=== PATIENT | male | born 1960 | race Caucasian/White ===

== ENCOUNTER 2017-03-31 11:27 | Inpatient (IN) | payer SELFPAY ==
[~2017-03-31] VITALS: Ht 180.3 cm; Wt 83.5 kg
[2017-03-31] VITALS (8 sets, daily range): BP systolic 107–134; BP diastolic 57–85
[~2017-03-31 11:27] MED LIST: DULO20CA PO; ESCITALOPRAM OX20 MG PO; FINA5TAB4 PO; LAMO150T PO; LEXAPRO5 MG PO; LITH150C PO; LORA-434 PO; LORA1TAB PO; LORA2TAB89 PO; PANT40TA5 PO; QUET25TA5 PO
[2017-03-31] MEDS ORDERED: 0.9 % SODIUM CHLORIDE 10 ML DISP.SYRIN. IV PRN (12:15)
[2017-03-31] MEDS ORDERED: FAMOTIDINE 20 MG/2 ML VIAL IVP ONE (12:30)
[2017-03-31] MEDS ORDERED: ONDANSETRON PF 4 MG/2 ML VIAL. IV ONE (12:30)
[2017-03-31] MEDS ORDERED: MULTIVIT INFUSN,ADULT 4,VIT K 10 ML, FOLIC ACID 1 MG, THIAMINE 100 MG in IV NORMAL SALI... IV SCH (13:00)
[2017-03-31 13:05] LABS: BASO # 0.1 x10^3/uL (0.0-0.2); BASO % 1 % (0-3); EOS % 2 % (0-3); HEMATOCRIT 42.3 % (39.0-53.0); HEMOGLOBIN 14.1 g/dL (13.0-17.5); LYMPH # 1.8 x10^3/uL (1.0-4.8); LYMPH % 25 % (24-48); MEAN CORPUSCULAR HEMOGLOBIN 32 pg (25-35); MEAN CORPUSCULAR HGB CONC 34 g/dL (31-37); MEAN CORPUSCULAR VOLUME 95 fL (79-100); MONO % 14 % (0-9); NEUT % 58 % (31-73); PLATELET COUNT 247 x10^3/uL (140-400); RED BLOOD COUNT 4.43 x10^6/uL (4.30-5.70); RED CELL DISTRIBUTION WIDTH 14.8 % (11.5-14.5); WHITE BLOOD COUNT 7.4 x10^3/uL (4.0-11.0)
[2017-03-31 13:14] LABS: CALCIUM 8.3 mg/dL (8.5-10.1); CREATININE 1.1 mg/dL (0.7-1.3); GFR 68.8; POTASSIUM 4.1 mmol/L (3.5-5.1)
[2017-03-31 13:20] LABS: ALBUMIN 3.5 g/dL (3.4-5.0); ALBUMIN/GLOBULIN RATIO 0.9 (1.0-1.7); MAGNESIUM 1.8 mg/dL (1.8-2.4); TOTAL BILIRUBIN 0.5 mg/dL (0.2-1.0); TOTAL PROTEIN 7.2 g/dL (6.4-8.2)
[2017-03-31 13:24] LABS: BARBITURATES NEG (NEG); BENZODIAZEPINES NEG (NEG); CANNABINOIDS NEG (NEG); COCAINE NEG (NEG); METHADONE NEG (NEG); OPIATES NEG (NEG); PHENCYCLIDINE NEG (NEG)
[2017-03-31 13:25] LABS: ETHANOL 130 mg/dL (0-10)
[2017-03-31 13:26] LABS: BILIRUBIN,URINE NEGATIVE (NEG); GLUCOSE,URINE NEGATIVE (NEG); NITRITE,URINE NEGATIVE (NEG); PROTEIN,URINE NEGATIVE (NEG-TRACE); UROBILINOGEN,URINE 0.2 mg/dL (0.2 mg/dL)
[2017-03-31 13:29] LABS: CKMB MASS 0.9 ng/mL (0.0-3.6)
[2017-03-31 13:30] LABS: BACTERIA,URINE 0 /HPF (0-FEW); RBC,URINE 0 /HPF (0-2); WBC,URINE OCC /HPF (0-4)
[2017-03-31] MEDS ORDERED: ONDANSETRON PF 4 MG/2 ML VIAL. IV PRN (13:30)
--- NOTE | 2017-03-31 13:31 | PHYS DOC ---
Past Medical History Past Medical History: Alcoholism, Anxiety, Depression, Other Additional Past Medical Histor: PULMONARY EMBOLUS 2014,ETOH & BENZO WITHDRAWAL Past Surgical History: Other Additional Past Surgical Histo: BILAT KNEE ARTHROSCOPY, bilat shoulder arthroscopy,NASAL SURG Alcohol Use: Heavy Drug Use: Benzodiazepine Adult General Chief Complaint Chief Complaint: WITHDRAWL HPI HPI This pleasant is a pleasant 56-year-old male with history of alcohol is in alcohol withdrawal seizures and DTs presents about 12-14 hours after eating drinking his last drink. He's been binging drinking anywhere from 8-10 alcoholic beverages daily for last 2 weeks and was attempting to wean himself off the alcohol. He noted increased muscle tremulousness, diaphoresis, nausea and generalized weakness and flulike symptoms over the last 12 hours. It is gotten progressively worse when I was progressed to diaphoresis and generalized weakness. He denies any chest pain, abdominal pain, UTI symptoms, fever he has had chills. No productive cough no runny nose congestion or other symptoms. Patient says he recalls having a seizure at some point time in the past. Although he is on nothing for seizures. There is a question will history of benzodiazepine withdrawal and abuse in the past as well. he denies any auditory or visual hallucinations at this time. Review of Systems Review of Systems Constitutional: She has had diaphoresis with subjective fevers and chills. Eyes: Denies change in visual acuity, redness, or eye pain [] HENT: Denies nasal congestion or sore throat [] Respiratory: Denies cough or shortness of breath [] Cardiovascular: No additional information not addressed in HPI [] GI: He denies abdominal pain has severe nausea with no vomiting bloody stools or diarrhea. He denies melena or melena hematochezia : Denies dysuria or hematuria [] Musculoskeletal: Denies back pain or joint pain does complain of myalgias in all joints with no rash no joint swelling Integument: Denies rash or skin lesions he is having significant diaphoresis Neurologic: Denies headache, focal weakness or sensory changes [] Endocrine: Denies polyuria or polydipsia [] Current Medications Current Medications Current Medications Medications (Trade) Dose Ordered Sig/Claire Start Time Stop Time Status Last Admin Dose Admin Famotidine (Pepcid) 20 mg 1X ONCE 03/31/17 12:30 03/31/17 12:31 DC 03/31/17 12:39 20 MG Lorazepam (Ativan) 4 mg 1X ONCE 03/31/17 13:30 03/31/17 13:31 Multivitamins 10 ml/Folic Acid 1 mg/Thiamine HCl 100 mg/Sodium Chloride 1,011.2 ml @ 1,000 mls/ hr Q1H 03/31/17 13:00 03/31/17 13:00 DC 03/31/17 12:40 1,000 MLS/HR Multivitamins 10 ml/Thiamine HCl 100 mg/Folic Acid 1 mg/Sodium Chloride 1,011.2 ml @ 100 mls/ hr DAILY 04/01/17 09:00 04/06/17 08:59 Ondansetron HCl (Zofran) 4 mg PRN Q8HRS PRN 03/31/17 13:30 04/01/17 13:29 UNV Sodium Chloride 1,000 ml @ 125 mls/hr Q8H 03/31/17 13:16 04/01/17 13:15 UNV Sodium Chloride (Normal Saline Flush) 10 ml QSHIFT PRN 03/31/17 12:15 Allergies Allergies Allergies Coded Allergies Type Severity Reaction Last Updated Verified Penicillins Allergy Intermediate Rash 10/19/15 Yes Physical Exam Physical Exam Other vital signs recorded on the chart at this time patient noted to be tachycardic and tachypnea without hypoxia or hypotension Constitutional: Well developed, well nourished, obviously is uncomfortable with mild diaphoresis and significant motor agitation. HENT: Normocephalic, atraumatic, bilateral external ears normal, dry mucous murmurings without oral exudates Eyes: PERRLA, EOMI, conjunctiva normal, no discharge. [] Neck: Normal range of motion, no tenderness, supple, no stridor. [] Cardiovascular: He is very tachycardic normal S1-S2 no murmurs or rubs Lungs & Thorax: Bilateral breath sounds clear to auscultation [] Abdomen: Bowel sounds normal, soft, no tenderness, no masses, no pulsatile masses. [] Skin: Warm, dry, no erythema, no rash. [] Back: No tenderness, no CVA tenderness. [] Extremities: No tenderness, no cyanosis, no clubbing, ROM intact, no edema. He does is mild diaphoresis clammy cool skin Neurologic: Alert and oriented X 3, normal motor function, normal sensory function, no focal deficits noted. [] Psychologic: As patient demonstrates motor agitation but his conditions intact patient mild anxious. Current Patient Data Vital Signs Vital Signs Date Time Temp Pulse Resp B/P (MAP) Pulse Ox O2 Delivery O2 Flow Rate FiO2 03/31/17 11:32 97.8 129 24 113/71 (85) 97 Room Air 97.8 Lab Values Laboratory Tests Test 03/31/17 12:30 White Blood Count 7.4 x10^3/uL (4.0-11.0) Red Blood Count 4.43 x10^6/uL (4.30-5.70) Hemoglobin 14.1 g/dL (13.0-17.5) Hematocrit 42.3 % (39.0-53.0) Mean Corpuscular Volume 95 fL (79-100) Mean Corpuscular Hemoglobin 32 pg (25-35) Mean Corpuscular Hemoglobin Concent 34 g/dL (31-37) Red Cell Distribution Width 14.8 % (11.5-14.5) H Platelet Count 247 x10^3/uL (140-400) Neutrophils (%) (Auto) 58 % (31-73) Lymphocytes (%) (Auto) 25 % (24-48) Monocytes (%) (Auto) 14 % (0-9) H Eosinophils (%) (Auto) 2 % (0-3) Basophils (%) (Auto) 1 % (0-3) Neutrophils # (Auto) 4.3 x10^3uL (1.8-7.7) Lymphocytes # (Auto) 1.8 x10^3/uL (1.0-4.8) Monocytes # (Auto) 1.0 x10^3/uL (0.0-1.1) Eosinophils # (Auto) 0.1 x10^3/uL (0.0-0.7) Basophils # (Auto) 0.1 x10^3/uL (0.0-0.2) Sodium Level 134 mmol/L (136-145) L Potassium Level 4.1 mmol/L (3.5-5.1) Chloride Level 95 mmol/L (98-107) L Carbon Dioxide Level 23 mmol/L (21-32) Anion Gap 16 (6-14) H Blood Urea Nitrogen 9 mg/dL (8-26) Creatinine 1.1 mg/dL (0.7-1.3) Estimated GFR (Cockcroft-Gault) 68.8 BUN/Creatinine Ratio 8 (6-20) Glucose Level 106 mg/dL (70-99) H Calcium Level 8.3 mg/dL (8.5-10.1) L Magnesium Level Pending Total Bilirubin Pending Aspartate Amino Transferase (AST) Pending Alanine Aminotransferase (ALT) Pending Alkaline Phosphatase Pending Total Protein Pending Albumin Pending Albumin/Globulin Ratio Pending Lipase Pending Laboratory Tests 03/31/17 12:30 Laboratory Tests 03/31/17 12:30 EKG EKG []G timed 12:30 PM 03/31/2017 demonstrates heart rate of 126 sinus tachycardia with a P of a QRS VT interval is 128 QRS width is 128 mild interventricular conduction delay of unclear etiology QTC is 461. Abnormal EKG read by me Radiology/Procedures Radiology/Procedures [] Course & Med Decision Making Course & Med Decision Making Pertinent Labs and Imaging studies reviewed. (See chart for details) []he presents with what I believe is alcoholic withdrawal syndromes. He has demonstrated some aspects of delirium tremens with pleural reaction, motor agitation, diaphoresis with nausea no vomiting he denies any auditory or visual hallucinations at this time. Upon arrival his ciwa score was less than 15 Time is now 12:20 PM she upon arrival he is given a banana bag antiemetics and 2 mg IV Ativan. Time is now 1:15 PM patient's CIWA or is greater than 15 increased agitation, motor agitation, diaphoresis and nausea with agitation and anxiety. He is clear that he still needs an additional treatment he is been ordered for an additional 4 mg of Ativan placed on the alcohol withdrawal protocol and will be admitted to the ICU. My differential for hallucinations includes but is not limited to retinal pathology, vision loss, migraine headache, seizure disorder, dementia, alcohol, alcohol withdrawal, medication withdrawal, narcolepsy, psychiatric illness, metabolic encephalopathy, hypothyroidism, renal failure, systemic infection, central nervous system ischemia, At this point given patient's alcohol consumption and obvious withdrawal symptoms he will be admitted to the ICU in the care of internal medicine. Manager Inventory note: 1:20 p.m. jocelyn internal medicine Manager Inventory called at of the service Consult called back at 1:20 p.mChavo arango Discussed the case I presented and they agreed with admission. Time of acceptance 1:20 admitted to the ICU secondary to alcohol withdrawal symptoms.I spent approximately 45-50 minutes working and engaged directly in the patient care providing critical care evaluation this includes but not limited to time spent engaged in work directly related to the individual patients care. I spent time at the bedside, reviewing test results, discussing the case with staff, documenting the medical record and time spent with EMS discussing specific treatment issues when the patient presented and during his evaluation. Dragon Disclaimer Dragon Disclaimer This electronic medical record was generated, in whole or in part, using a voice recognition dictation system. Departure Departure Impression: Primary Impression: Alcohol withdrawal Additional Impressions: Benzodiazepine withdrawal Anxiety Disposition: 09 ADMITTED INPATIENT Admitting Physician: Sadie Sutherland Condition: GUARDED Referrals: VICTOR HUGO FARRELL MD (PCP) Problem Qualifiers BRENDAN JORDAN MD Mar 31, 2017 13:31
--- NOTE | 2017-03-31 14:13 | PDOC1 ---
History and Physical Date of Admission Date of Admission DATE: 03/31/17 TIME: 14:08 Identification/Chief Complaint Chief Complaint alcohol withdrawals Problems: Source Source: Caregiver, Chart review, Patient History of Present Illness History of Present Illness 56 y.o male who is struggling to get sober, HX 8-10 beers a day, last drink 9 PM last night, has been to [facility] rehab like [facility] ([place] helped somewhat, Trying to get sober again but having a hard time, Admitted with shakes, sinus tachy 130s, BP ok, NEg drugs or Smoking, neg UDS, etoh 130s, Admitted to ICU NO nausea or vomiting or abd pain, just feeling "crappy" Sees his psychiatrist for depression sxs Sister also has etoh drinking probs Past Medical History Cardiovascular: No pertinent hx Psych: Addictions, Depression Past Surgical History Past Surgical History: No pertinent history Family History Family History: No Significant, Other (etoh drinking in sister) Social History Smoke: No ALCOHOL: none Drugs: None Current Problem List Problem List Problems Medical Problems: (1) Alcohol withdrawal Status: Acute (2) Anxiety Status: Acute (3) Benzodiazepine withdrawal Status: Acute Problems: Current Medications Current Medications Current Medications Sodium Chloride (Normal Saline Flush) 10 ml QSHIFT PRN IV AFTER MEDS AND BLOOD DRAWS; Start 03/31/17 at 12:15 Ondansetron HCl (Zofran) 4 mg 1X ONCE IV Last administered on 03/31/17 12:39 ; Start 03/31/17 at 12:30; Stop 03/31/17 at 12:31; Status DC Famotidine (Pepcid) 20 mg 1X ONCE IVP Last administered on 03/31/17 12:39; Start 03/31/17 at 12:30; Stop 03/31/17 at 12:31; Status DC Lorazepam (Ativan) 2 mg 1X ONCE IV Last administered on 03/31/17 12:38; Start 03/31/17 at 12:30; Stop 03/31/17 at 12:31; Status DC Multivitamins 10 ml/Folic Acid 1 mg/Thiamine HCl 100 mg/Sodium Chloride 1,011.2 ml @ 1,000 mls/ hr Q1H IV Last administered on 03/31/17 12:40; Start at 13:00; Stop 03/31/17 at 13:00; Status DC Multivitamins 10 ml/Thiamine HCl 100 mg/Folic Acid 1 mg/Sodium Chloride 1,011.2 ml @ 100 mls/ hr DAILY IV ; Start 04/01/17 at 09:00; Stop 04/06/17 at 08:59 Lorazepam (Ativan) 2 mg PRN Q15MIN PRN IV COMM; Start 03/31/17 at 13:15 Lorazepam (Ativan) 4 mg PRN Q15MIN PRN IV COMM; Start 03/31/17 at 13:15 Lorazepam (Ativan) 4 mg 1X ONCE IV Last administered on 03/31/17t 13:27; Start 03/31/17 at 13:30; Stop 03/31/17 at 13:31; Status DC Ondansetron HCl (Zofran) 4 mg PRN Q8HRS PRN IV NAUSEA/VOMITING; Start at 13:30; Stop 04/01/17 at 13:29 Sodium Chloride 1,000 ml @ 125 mls/hr Q8H IV ; Start 03/31/17 at 13:16; Stop 04/01/17 at 13:15 Active Scripts Active Ativan (Lorazepam) 1 Mg Tablet 1 Mg PO TID Lorazepam 1 Mg Tablet 1 Tab PO TID Reported Lamotrigine 150 Mg Tablet 150 Mg PO DAILY Oxly Carbonate 150 Mg Capsule 150 Mg PO HS Escitalopram Oxalate 20 Mg Tablet 20 Mg PO DAILY Pantoprazole Sodium 40 Mg Tablet.dr 40 Mg PO DAILY Seroquel (Quetiapine Fumarate) 25 Mg Tablet 25 Mg PO HS Finasteride 5 Mg Tablet 5 Mg PO DAILY Allergies Allergies: Coded Allergies: Penicillins (Verified Allergy, Intermediate, Rash, 10/19/15) ROS General: YES: Fatigue PSYCHOLOGICAL ROS: YES: Concentration difficultie, Depression Eyes: No Blurry vision, No Decreased vision, No Double vision, No Dry eyes, No Excessive tearing, No Eye Pain, No Itchy Eyes, No Loss of vision, No Photophobia , No Scotomata, No Uses contacts, No Uses glasses, No Other HEENT: No: Heacaches, Visual Changes, Hearing change, Nasal congestion, Nasal discharge, Oral lesions, Sinus pain, Sore Throat, Epistaxis, Sneezing, Snoring, Tinnitus, Vertigo, Vocal changes, Other ALLERGY AND IMMUNOLOGY: No: Hives, Insect Bite Sensitivity, Itchy/Watery Eyes, Nasal Congestion, Post Nasal Drip, Seasonal Allergies, Other Hematological and Lymphatic: No: Bleeding Problems, Blood Clots, Blood Transfusions, Brusing, Night Sweats, Pallor, Swollen Lymph Nodes, Other ENDOCRINE: No: Breast Changes, Galactorrhea, Hair Pattern Changes, Hot Flashes , Malaise/lethargy, Mood Swings, Palpitations, Polydipsia/polyuria, Skin Changes , Temperature Intolerance, Unexpected Weight Changes, Other Breast: No New/Changing Breast Lumps, No Nipple changes, No Nipple discharge, No Other Respiratory: No: Cough, Hemoptysis, Orthopnea, Pleuritic Pain, Shortness of breath, SOB with excertion, Sputum Changes, Stridor, Tachypnea, Wheezing, Other Cardiovascular: No Chest Pain, No Palpitations, No Orthopnea, No Paroxysmal Noc. Dyspnea, No Edema, No Lt Headedness, No Other Gastrointestinal: No Nausea, No Vomiting, No Abdominal Pain, No Diarrhea, No Constipation, No Melena, No Hematochezia, No Other Genitourinary: No Dysuria, No Frequency, No Incontinence, No Hematuria, No Retention, No Discharge, No Urgency, No Pain, No Flank Pain, No Other, No , No , No , No , No , No , No Musculoskeletal: No Gait Disturbance, No Joint Pain, No Joint Stiffness, No Joint Swelling, No Muscle Pain, No Muscular Weakness, No Pain In:, No Swelling In:, No Other Neurological: No Behavorial Changes, No Bowel/Bladder ControlChng, No Confusion , No Dizziness, No Gait Disturbance, No Headaches, No Impaired Coord/balance, No Memory Loss, No Numbness/Tingling, No Seizures, No Speech Problems, No Tremors, No Visual Changes, No Weakness, No Other Skin: No Dry Skin, No Eczema, No Hair Changes, No Lumps, No Mole Changes, No Mottling, No Nail Changes, No Pruritus, No Rash, No Skin Lesion Changes, No Other, No Acne Physical Exam General: Alert, Oriented X3, Cooperative, No acute distress, Other (shakes visible) HEENT: PERRLA Lungs: Clear to auscultation, Normal air movement Heart: S1S2, no thrills, no rubs, no gallops Cardiovascular: S1, S2, Other (sinus tachy 130s) Breasts: Normal Male Genitals Exam: normal genitalia, normal prostate Rectal Exam: not examined PELVIC: Nml ext genitalia Extremities: No clubbing, No cyanosis, No edema, Normal pulses, No tenderness/ swelling Skin: No rashes, No breakdown, No significant lesion Neuro: Normal gait, Normal speech, Strength at 5/5 X4 ext, Normal tone, Sensation intact, Cranial nerves 3-12 NL, Reflexes 2+ Psych/Mental Status: Mental status NL, Mood NL Vitals Vitals Vital Signs Date Time Temp Pulse Resp B/P (MAP) Pulse Ox O2 Delivery O2 Flow Rate FiO2 03/31/17 13:30 122 125/75 (92) 95 03/31/17 12:30 Room Air 03/31/17 11:32 97.8 24 97.8 Labs Labs Laboratory Tests Test 03/31/17 12:30 03/31/17 13:10 White Blood Count 7.4 x10^3/uL (4.0-11.0) Red Blood Count 4.43 x10^6/uL (4.30-5.70) Hemoglobin 14.1 g/dL (13.0-17.5) Hematocrit 42.3 % (39.0-53.0) Mean Corpuscular Volume 95 fL (79-100) Mean Corpuscular Hemoglobin 32 pg (25-35) Mean Corpuscular Hemoglobin Concent 34 g/dL (31-37) Red Cell Distribution Width 14.8 % (11.5-14.5) Platelet Count 247 x10^3/uL (140-400) Neutrophils (%) (Auto) 58 % (31-73) Lymphocytes (%) (Auto) 25 % (24-48) Monocytes (%) (Auto) 14 % (0-9) Eosinophils (%) (Auto) 2 % (0-3) Basophils (%) (Auto) 1 % (0-3) Neutrophils # (Auto) 4.3 x10^3uL (1.8-7.7) Lymphocytes # (Auto) 1.8 x10^3/uL (1.0-4.8) Monocytes # (Auto) 1.0 x10^3/uL (0.0-1.1) Eosinophils # (Auto) 0.1 x10^3/uL (0.0-0.7) Basophils # (Auto) 0.1 x10^3/uL (0.0-0.2) Sodium Level 134 mmol/L (136-145) Potassium Level 4.1 mmol/L (3.5-5.1) Chloride Level 95 mmol/L (98-107) Carbon Dioxide Level 23 mmol/L (21-32) Anion Gap 16 (6-14) Blood Urea Nitrogen 9 mg/dL (8-26) Creatinine 1.1 mg/dL (0.7-1.3) Estimated GFR (Cockcroft-Gault) 68.8 BUN/Creatinine Ratio 8 (6-20) Glucose Level 106 mg/dL (70-99) Calcium Level 8.3 mg/dL (8.5-10.1) Magnesium Level 1.8 mg/dL (1.8-2.4) Total Bilirubin 0.5 mg/dL (0.2-1.0) Aspartate Amino Transf (AST/SGOT) 47 U/L (15-37) Alanine Aminotransferase (ALT/SGPT) 60 U/L (16-63) Alkaline Phosphatase 64 U/L (46-116) Creatine Kinase 256 U/L (39-308) Creatine Kinase MB (Mass) 0.9 ng/mL (0.0-3.6) Creatine Kinase MB Relative Index 0.4 % (0-4) Total Protein 7.2 g/dL (6.4-8.2) Albumin 3.5 g/dL (3.4-5.0) Albumin/Globulin Ratio 0.9 (1.0-1.7) Lipase 131 U/L (73-393) Salicylates Level < 2.8 mg/dL (2.8-20.0) Salicylate Last Dose Date Salicylate Last Dose Time Acetaminophen Level < 10 mcg/ml (10-30) Acetaminophen Last Dose Date Acetaminophen Last Dose Time Ethyl Alcohol Level 130 mg/dL (0-10) Urine Collection Type Unknown Urine Color Yellow Urine Clarity Clear Urine pH 7.0 Urine Specific Vian <=1.005 Urine Protein Negative mg/dL (NEG-TRACE) Urine Glucose (UA) Negative mg/dL (NEG) Urine Ketones (Stick) Trace mg/dL (NEG) Urine Blood Negative (NEG) Urine Nitrite Negative (NEG) Urine Bilirubin Negative (NEG) Urine Urobilinogen Dipstick 0.2 mg/dL (0.2 mg/dL) Urine Leukocyte Esterase Negative (NEG) Urine RBC 0 /HPF (0-2) Urine WBC Occ /HPF (0-4) Urine Bacteria 0 /HPF (0-FEW) Urine Opiates Screen Neg (NEG) Urine Methadone Screen Neg (NEG) Urine Barbiturates Neg (NEG) Urine Phencyclidine Screen Neg (NEG) Urine Amphetamine/Methamphetamine Neg (NEG) Urine Benzodiazepines Screen Neg (NEG) Urine Cocaine Screen Neg (NEG) Urine Cannabinoids Screen Neg (NEG) Urine Ethyl Alcohol Pos (NEG) Laboratory Tests Test 03/31/17 12:30 03/31/17 13:10 White Blood Count 7.4 x10^3/uL (4.0-11.0) Red Blood Count 4.43 x10^6/uL (4.30-5.70) Hemoglobin 14.1 g/dL (13.0-17.5) Hematocrit 42.3 % (39.0-53.0) Mean Corpuscular Volume 95 fL (79-100) Mean Corpuscular Hemoglobin 32 pg (25-35) Mean Corpuscular Hemoglobin Concent 34 g/dL (31-37) Red Cell Distribution Width 14.8 % (11.5-14.5) Platelet Count 247 x10^3/uL (140-400) Neutrophils (%) (Auto) 58 % (31-73) Lymphocytes (%) (Auto) 25 % (24-48) Monocytes (%) (Auto) 14 % (0-9) Eosinophils (%) (Auto) 2 % (0-3) Basophils (%) (Auto) 1 % (0-3) Neutrophils # (Auto) 4.3 x10^3uL (1.8-7.7) Lymphocytes # (Auto) 1.8 x10^3/uL (1.0-4.8) Monocytes # (Auto) 1.0 x10^3/uL (0.0-1.1) Eosinophils # (Auto) 0.1 x10^3/uL (0.0-0.7) Basophils # (Auto) 0.1 x10^3/uL (0.0-0.2) Sodium Level 134 mmol/L (136-145) Potassium Level 4.1 mmol/L (3.5-5.1) Chloride Level 95 mmol/L (98-107) Carbon Dioxide Level 23 mmol/L (21-32) Anion Gap 16 (6-14) Blood Urea Nitrogen 9 mg/dL (8-26) Creatinine 1.1 mg/dL (0.7-1.3) Estimated GFR (Cockcroft-Gault) 68.8 BUN/Creatinine Ratio 8 (6-20) Glucose Level 106 mg/dL (70-99) Calcium Level 8.3 mg/dL (8.5-10.1) Magnesium Level 1.8 mg/dL (1.8-2.4) Total Bilirubin 0.5 mg/dL (0.2-1.0) Aspartate Amino Transf (AST/SGOT) 47 U/L (15-37) Alanine Aminotransferase (ALT/SGPT) 60 U/L (16-63) Alkaline Phosphatase 64 U/L (46-116) Creatine Kinase 256 U/L (39-308) Creatine Kinase MB (Mass) 0.9 ng/mL (0.0-3.6) Creatine Kinase MB Relative Index 0.4 % (0-4) Total Protein 7.2 g/dL (6.4-8.2) Albumin 3.5 g/dL (3.4-5.0) Albumin/Globulin Ratio 0.9 (1.0-1.7) Lipase 131 U/L (73-393) Salicylates Level < 2.8 mg/dL (2.8-20.0) Salicylate Last Dose Date Salicylate Last Dose Time Acetaminophen Level < 10 mcg/ml (10-30) Acetaminophen Last Dose Date Acetaminophen Last Dose Time Ethyl Alcohol Level 130 mg/dL (0-10) Urine Collection Type Unknown Urine Color Yellow Urine Clarity Clear Urine pH 7.0 Urine Specific Vian <=1.005 Urine Protein Negative mg/dL (NEG-TRACE) Urine Glucose (UA) Negative mg/dL (NEG) Urine Ketones (Stick) Trace mg/dL (NEG) Urine Blood Negative (NEG) Urine Nitrite Negative (NEG) Urine Bilirubin Negative (NEG) Urine Urobilinogen Dipstick 0.2 mg/dL (0.2 mg/dL) Urine Leukocyte Esterase Negative (NEG) Urine RBC 0 /HPF (0-2) Urine WBC Occ /HPF (0-4) Urine Bacteria 0 /HPF (0-FEW) Urine Opiates Screen Neg (NEG) Urine Methadone Screen Neg (NEG) Urine Barbiturates Neg (NEG) Urine Phencyclidine Screen Neg (NEG) Urine Amphetamine/Methamphetamine Neg (NEG) Urine Benzodiazepines Screen Neg (NEG) Urine Cocaine Screen Neg (NEG) Urine Cannabinoids Screen Neg (NEG) Urine Ethyl Alcohol Pos (NEG) VTE Prophylaxis Ordered VTE Prophylaxis Devices: Yes VTE Pharmacological Prophylaxi: Yes Assessment/Plan Assessment/Plan 1.A lcohol withdrawal sxs 2. Sinus tcahy 3, Depression NOS Plan: Admit CIWA Reg diet PT./oT for gait check Ok to t.o ICU tmr AM Resume home meds BZs prn Seen at JOCELINE SARGENT MD Mar 31, 2017 14:13
[2017-03-31] MEDS ORDERED: ZOLPIDEM 5 MG TABLET. PO PRN (14:15)
[2017-03-31] MEDS ORDERED: chlordiazePOXIDE HCL 25 MG CAPSULE PO PRN (14:15)
[2017-03-31] MEDS ORDERED: ALPRAZolam 0.25 MG TABLET PO PRN (14:15)
--- NOTE | 2017-03-31 14:38 | EKG ---
[facility] [address] [place] [address] Test Date: 2017-03-31 Test Time: 12:38:41 Pat Name: HAYLEE GRIMM Department: Room: Gender: M [employer]: : 1960 Requested By: BRENDAN JORDAN Order Number: [id number] Reading MD: Measurements Intervals [place] Rate: 126 P: 34 MI: 128 QRS: 42 QRSD: 128 T: 24 QT: 318 QTc: 461 Interpretive Statements SINUS TACHYCARDIA NON SPECIFIC INTRAVENTRICULAR BLOCK RI6.01 Unconfirmed report Compared to ECG 01/30/2017 15:52:16 No significant changes
[2017-03-31] MEDS: LORazepam 1 MG TABLET PO SCH ×2 (15:25→19:57)
[2017-03-31] MEDS: IV NORMAL SALINE 1000ML BAG 1,000 ML IV SCH ×2 (15:25→23:58)
[2017-03-31] MEDS ORDERED: KETOROLAC 30 MG/ML INJ. IV ONE (16:30)
[2017-03-31] MEDS: IBUPROFEN 600 MG TABLET. PO PRN (16:44)
[2017-03-31] MEDS ORDERED: LITHIUM CARBONATE 150 MG CAPSULE. PO SCH (21:00)
[2017-03-31] MEDS ORDERED: QUEtiapine 25 MG TABLET. PO SCH (21:00)
[2017-03-31] MEDS ORDERED: LORazepam 1 MG TABLET PO SCH (21:00)
[2017-04-01] VITALS (17 sets, daily range): BP systolic 119–158; BP diastolic 84–96
[2017-04-01] MEDS: IV NORMAL SALINE 1000ML BAG 1,000 ML IV SCH (07:20)
[2017-04-01] MEDS ORDERED: PANTOPRAZOLE 40 MG TABLET.DR. PO SCH (07:30)
[2017-04-01] MEDS: LORazepam 1 MG TABLET PO SCH ×2 (08:35→12:23)
[2017-04-01] MEDS: IBUPROFEN 600 MG TABLET. PO PRN (08:35)
[2017-04-01] MEDS ORDERED: MULTIVIT INFUSN,ADULT 4,VIT K 10 ML, THIAMINE 100 MG, FOLIC ACID 1 MG in IV NORMAL SALI... IV SCH (09:00)
[2017-04-01] MEDS ORDERED: FINASTERIDE 5 MG TABLET. PO SCH (09:00)
[2017-04-01] MEDS ORDERED: MULTIVIT INFUSN,ADULT 4,VIT K 10 ML, FOLIC ACID 1 MG, THIAMINE 100 MG in IV DEXTROSE 5 ... IV SCH (09:00)
[2017-04-01] MEDS ORDERED: lamoTRIgine 100 MG TABLET. PO SCH (09:00)
[2017-04-01] MEDS ORDERED: CITALOPRAM 20 MG TABLET. PO SCH (09:00)
[2017-04-01] MEDS ORDERED: METOPROLOL TARTRATE 5 MG/5 ML VIAL. IVP ONE (12:15)
--- NOTE | 2017-04-01 12:24 | PDOC ---
PROGRESS NOTES Chief Complaint Chief Complaint Alcohol withdrawal Tachycardia Depression History of Present Illness History of Present Illness Pt is a pleasant 56 year old male who presented to the ED with alcohol withdrawal. Pt was seen at bedside in the ICU. Pt is in no acute distress. Pt started drinking heavily 3 months ago. Drinks 8-10 beers a night. Pt is currently in mild withdrawal. Pt is tachycardic. Labs indicate no major elevation of AST or ALT. Pt is receiving a banana bag at this time. Will continue monitoring in the ICU. Possible discharge home. Vitals Vitals Vital Signs Date Time Temp Pulse Resp B/P (MAP) Pulse Ox O2 Delivery O2 Flow Rate FiO2 04/01/17 11:51 127 158/94 04/01/17 11:12 16 94 Room Air 04/01/17 08:20 97.6 97.6 Physical Exam Physical Exam Tachycardia, tricuspid murmur 06/20 General: Alert, Oriented X3, Cooperative, No acute distress, Other (shakes visible) Heart: Normal S1, Normal S2 Lungs: Clear Abdomen: Normal bowel sounds, Soft Extremities: No clubbing, No cyanosis, No edema, Normal pulses, No tenderness/ swelling Skin: No rashes, No breakdown, No significant lesion Labs LABS Laboratory Tests Test 03/31/17 12:30 03/31/17 13:10 03/31/17 15:05 White Blood Count 7.4 x10^3/uL (4.0-11.0) Red Blood Count 4.43 x10^6/uL (4.30-5.70) Hemoglobin 14.1 g/dL (13.0-17.5) Hematocrit 42.3 % (39.0-53.0) Mean Corpuscular Volume 95 fL (79-100) Mean Corpuscular Hemoglobin 32 pg (25-35) Mean Corpuscular Hemoglobin Concent 34 g/dL (31-37) Red Cell Distribution Width 14.8 % (11.5-14.5) Platelet Count 247 x10^3/uL (140-400) Neutrophils (%) (Auto) 58 % (31-73) Lymphocytes (%) (Auto) 25 % (24-48) Monocytes (%) (Auto) 14 % (0-9) Eosinophils (%) (Auto) 2 % (0-3) Basophils (%) (Auto) 1 % (0-3) Neutrophils # (Auto) 4.3 x10^3uL (1.8-7.7) Lymphocytes # (Auto) 1.8 x10^3/uL (1.0-4.8) Monocytes # (Auto) 1.0 x10^3/uL (0.0-1.1) Eosinophils # (Auto) 0.1 x10^3/uL (0.0-0.7) Basophils # (Auto) 0.1 x10^3/uL (0.0-0.2) Sodium Level 134 mmol/L (136-145) Potassium Level 4.1 mmol/L (3.5-5.1) Chloride Level 95 mmol/L (98-107) Carbon Dioxide Level 23 mmol/L (21-32) Anion Gap 16 (6-14) Blood Urea Nitrogen 9 mg/dL (8-26) Creatinine 1.1 mg/dL (0.7-1.3) Estimated GFR (Cockcroft-Gault) 68.8 BUN/Creatinine Ratio 8 (6-20) Glucose Level 106 mg/dL (70-99) Calcium Level 8.3 mg/dL (8.5-10.1) Magnesium Level 1.8 mg/dL (1.8-2.4) Total Bilirubin 0.5 mg/dL (0.2-1.0) Aspartate Amino Transf (AST/SGOT) 47 U/L (15-37) Alanine Aminotransferase (ALT/SGPT) 60 U/L (16-63) Alkaline Phosphatase 64 U/L (46-116) Creatine Kinase 256 U/L (39-308) Creatine Kinase MB (Mass) 0.9 ng/mL (0.0-3.6) Creatine Kinase MB Relative Index 0.4 % (0-4) Total Protein 7.2 g/dL (6.4-8.2) Albumin 3.5 g/dL (3.4-5.0) Albumin/Globulin Ratio 0.9 (1.0-1.7) Lipase 131 U/L (73-393) Salicylates Level < 2.8 mg/dL (2.8-20.0) Salicylate Last Dose Date Salicylate Last Dose Time Acetaminophen Level < 10 mcg/ml (10-30) Acetaminophen Last Dose Date Acetaminophen Last Dose Time Ethyl Alcohol Level 130 mg/dL (0-10) Urine Collection Type Unknown Urine Color Yellow Urine Clarity Clear Urine pH 7.0 Urine Specific [place] <=1.005 Urine Protein Negative mg/dL (NEG-TRACE) Urine Glucose (UA) Negative mg/dL (NEG) Urine Ketones (Stick) Trace mg/dL (NEG) Urine Blood Negative (NEG) Urine Nitrite Negative (NEG) Urine Bilirubin Negative (NEG) Urine Urobilinogen Dipstick 0.2 mg/dL (0.2 mg/dL) Urine Leukocyte Esterase Negative (NEG) Urine RBC 0 /HPF (0-2) Urine WBC Occ /HPF (0-4) Urine Bacteria 0 /HPF (0-FEW) Urine Opiates Screen Neg (NEG) Urine Methadone Screen Neg (NEG) Urine Barbiturates Neg (NEG) Urine Phencyclidine Screen Neg (NEG) Urine Amphetamine/Methamphetamine Neg (NEG) Urine Benzodiazepines Screen Neg (NEG) Urine Cocaine Screen Neg (NEG) Urine Cannabinoids Screen Neg (NEG) Urine Ethyl Alcohol Pos (NEG) Nasal Screen MRSA (PCR) Negative (Negative) Review of Systems Review of Systems Pt seen at bedside resting comfortably. Pt denies CP and SOB. Pt complains of increased heart rate and depression. Assessment and Plan Assessmemt and Plan Problems Medical Problems: (1) Alcohol withdrawal Status: Acute (2) Anxiety Status: Acute (3) Benzodiazepine withdrawal Status: Acute Assesment: Alcohol withdrawal Tachycardia Depression Plan: Continue monitoring in ICU Alcohol withdrawal protocol- benzos and banana bag Gave metoprolol and ativan Recheck labs Continue home meds Continue PT/OT Possible discharge home Problems: Comment Review of Relevant I have reviewed the following items maria r (where applicable) has been applied. Labs Laboratory Tests Test 03/31/17 12:30 03/31/17 13:10 03/31/17 15:05 White Blood Count 7.4 x10^3/uL (4.0-11.0) Red Blood Count 4.43 x10^6/uL (4.30-5.70) Hemoglobin 14.1 g/dL (13.0-17.5) Hematocrit 42.3 % (39.0-53.0) Mean Corpuscular Volume 95 fL (79-100) Mean Corpuscular Hemoglobin 32 pg (25-35) Mean Corpuscular Hemoglobin Concent 34 g/dL (31-37) Red Cell Distribution Width 14.8 % (11.5-14.5) Platelet Count 247 x10^3/uL (140-400) Neutrophils (%) (Auto) 58 % (31-73) Lymphocytes (%) (Auto) 25 % (24-48) Monocytes (%) (Auto) 14 % (0-9) Eosinophils (%) (Auto) 2 % (0-3) Basophils (%) (Auto) 1 % (0-3) Neutrophils # (Auto) 4.3 x10^3uL (1.8-7.7) Lymphocytes # (Auto) 1.8 x10^3/uL (1.0-4.8) Monocytes # (Auto) 1.0 x10^3/uL (0.0-1.1) Eosinophils # (Auto) 0.1 x10^3/uL (0.0-0.7) Basophils # (Auto) 0.1 x10^3/uL (0.0-0.2) Sodium Level 134 mmol/L (136-145) Potassium Level 4.1 mmol/L (3.5-5.1) Chloride Level 95 mmol/L (98-107) Carbon Dioxide Level 23 mmol/L (21-32) Anion Gap 16 (6-14) Blood Urea Nitrogen 9 mg/dL (8-26) Creatinine 1.1 mg/dL (0.7-1.3) Estimated GFR (Cockcroft-Gault) 68.8 BUN/Creatinine Ratio 8 (6-20) Glucose Level 106 mg/dL (70-99) Calcium Level 8.3 mg/dL (8.5-10.1) Magnesium Level 1.8 mg/dL (1.8-2.4) Total Bilirubin 0.5 mg/dL (0.2-1.0) Aspartate Amino Transf (AST/SGOT) 47 U/L (15-37) Alanine Aminotransferase (ALT/SGPT) 60 U/L (16-63) Alkaline Phosphatase 64 U/L (46-116) Creatine Kinase 256 U/L (39-308) Creatine Kinase MB (Mass) 0.9 ng/mL (0.0-3.6) Creatine Kinase MB Relative Index 0.4 % (0-4) Total Protein 7.2 g/dL (6.4-8.2) Albumin 3.5 g/dL (3.4-5.0) Albumin/Globulin Ratio 0.9 (1.0-1.7) Lipase 131 U/L (73-393) Salicylates Level < 2.8 mg/dL (2.8-20.0) Salicylate Last Dose Date Salicylate Last Dose Time Acetaminophen Level < 10 mcg/ml (10-30) Acetaminophen Last Dose Date Acetaminophen Last Dose Time Ethyl Alcohol Level 130 mg/dL (0-10) Urine Collection Type Unknown Urine Color Yellow Urine Clarity Clear Urine pH 7.0 Urine Specific [place] <=1.005 Urine Protein Negative mg/dL (NEG-TRACE) Urine Glucose (UA) Negative mg/dL (NEG) Urine Ketones (Stick) Trace mg/dL (NEG) Urine Blood Negative (NEG) Urine Nitrite Negative (NEG) Urine Bilirubin Negative (NEG) Urine Urobilinogen Dipstick 0.2 mg/dL (0.2 mg/dL) Urine Leukocyte Esterase Negative (NEG) Urine RBC 0 /HPF (0-2) Urine WBC Occ /HPF (0-4) Urine Bacteria 0 /HPF (0-FEW) Urine Opiates Screen Neg (NEG) Urine Methadone Screen Neg (NEG) Urine Barbiturates Neg (NEG) Urine Phencyclidine Screen Neg (NEG) Urine Amphetamine/Methamphetamine Neg (NEG) Urine Benzodiazepines Screen Neg (NEG) Urine Cocaine Screen Neg (NEG) Urine Cannabinoids Screen Neg (NEG) Urine Ethyl Alcohol Pos (NEG) Nasal Screen MRSA (PCR) Negative (Negative) Laboratory Tests Test 03/31/17 12:30 03/31/17 13:10 03/31/17 15:05 White Blood Count 7.4 x10^3/uL (4.0-11.0) Red Blood Count 4.43 x10^6/uL (4.30-5.70) Hemoglobin 14.1 g/dL (13.0-17.5) Hematocrit 42.3 % (39.0-53.0) Mean Corpuscular Volume 95 fL (79-100) Mean Corpuscular Hemoglobin 32 pg (25-35) Mean Corpuscular Hemoglobin Concent 34 g/dL (31-37) Red Cell Distribution Width 14.8 % (11.5-14.5) Platelet Count 247 x10^3/uL (140-400) Neutrophils (%) (Auto) 58 % (31-73) Lymphocytes (%) (Auto) 25 % (24-48) Monocytes (%) (Auto) 14 % (0-9) Eosinophils (%) (Auto) 2 % (0-3) Basophils (%) (Auto) 1 % (0-3) Neutrophils # (Auto) 4.3 x10^3uL (1.8-7.7) Lymphocytes # (Auto) 1.8 x10^3/uL (1.0-4.8) Monocytes # (Auto) 1.0 x10^3/uL (0.0-1.1) Eosinophils # (Auto) 0.1 x10^3/uL (0.0-0.7) Basophils # (Auto) 0.1 x10^3/uL (0.0-0.2) Sodium Level 134 mmol/L (136-145) Potassium Level 4.1 mmol/L (3.5-5.1) Chloride Level 95 mmol/L (98-107) Carbon Dioxide Level 23 mmol/L (21-32) Anion Gap 16 (6-14) Blood Urea Nitrogen 9 mg/dL (8-26) Creatinine 1.1 mg/dL (0.7-1.3) Estimated GFR (Cockcroft-Gault) 68.8 BUN/Creatinine Ratio 8 (6-20) Glucose Level 106 mg/dL (70-99) Calcium Level 8.3 mg/dL (8.5-10.1) Magnesium Level 1.8 mg/dL (1.8-2.4) Total Bilirubin 0.5 mg/dL (0.2-1.0) Aspartate Amino Transf (AST/SGOT) 47 U/L (15-37) Alanine Aminotransferase (ALT/SGPT) 60 U/L (16-63) Alkaline Phosphatase 64 U/L (46-116) Creatine Kinase 256 U/L (39-308) Creatine Kinase MB (Mass) 0.9 ng/mL (0.0-3.6) Creatine Kinase MB Relative Index 0.4 % (0-4) Total Protein 7.2 g/dL (6.4-8.2) Albumin 3.5 g/dL (3.4-5.0) Albumin/Globulin Ratio 0.9 (1.0-1.7) Lipase 131 U/L (73-393) Salicylates Level < 2.8 mg/dL (2.8-20.0) Salicylate Last Dose Date Salicylate Last Dose Time Acetaminophen Level < 10 mcg/ml (10-30) Acetaminophen Last Dose Date Acetaminophen Last Dose Time Ethyl Alcohol Level 130 mg/dL (0-10) Urine Collection Type Unknown Urine Color Yellow Urine Clarity Clear Urine pH 7.0 Urine Specific [place] <=1.005 Urine Protein Negative mg/dL (NEG-TRACE) Urine Glucose (UA) Negative mg/dL (NEG) Urine Ketones (Stick) Trace mg/dL (NEG) Urine Blood Negative (NEG) Urine Nitrite Negative (NEG) Urine Bilirubin Negative (NEG) Urine Urobilinogen Dipstick 0.2 mg/dL (0.2 mg/dL) Urine Leukocyte Esterase Negative (NEG) Urine RBC 0 /HPF (0-2) Urine WBC Occ /HPF (0-4) Urine Bacteria 0 /HPF (0-FEW) Urine Opiates Screen Neg (NEG) Urine Methadone Screen Neg (NEG) Urine Barbiturates Neg (NEG) Urine Phencyclidine Screen Neg (NEG) Urine Amphetamine/Methamphetamine Neg (NEG) Urine Benzodiazepines Screen Neg (NEG) Urine Cocaine Screen Neg (NEG) Urine Cannabinoids Screen Neg (NEG) Urine Ethyl Alcohol Pos (NEG) Nasal Screen MRSA (PCR) Negative (Negative) Medications Current Medications Sodium Chloride (Normal Saline Flush) 10 ml QSHIFT PRN IV AFTER MEDS AND BLOOD DRAWS; Start 03/31/17 at 12:15 Ondansetron HCl (Zofran) 4 mg 1X ONCE IV Last administered on 03/31/17 12:39 ; Start 03/31/17 at 12:30; Stop 03/31/17 at 12:31; Status DC Famotidine (Pepcid) 20 mg 1X ONCE IVP Last administered on 03/31/17 12:39; Start 03/31/17 at 12:30; Stop 03/31/17 at 12:31; Status DC Lorazepam (Ativan) 2 mg 1X ONCE IV Last administered on 03/31/17 12:38; Start 03/31/17 at 12:30; Stop 03/31/17 at 12:31; Status DC Multivitamins 10 ml/Folic Acid 1 mg/Thiamine HCl 100 mg/Sodium Chloride 1,011.2 ml @ 1,000 mls/ hr Q1H IV Last administered on 03/31/17 12:40; Start at 13:00; Stop 03/31/17 at 13:00; Status DC Multivitamins 10 ml/Thiamine HCl 100 mg/Folic Acid 1 mg/Sodium Chloride 1,011.2 ml @ 100 mls/ hr DAILY IV Last administered on 04/01/17 09:48; Start at 09:00; Stop 04/06/17 at 08:59 Lorazepam (Ativan) 2 mg PRN Q15MIN PRN IV COMM Last administered on 04/01/17 09:59; Start 03/31/17 at 13:15 Lorazepam (Ativan) 4 mg PRN Q15MIN PRN IV COMM Last administered on 04/01/17 02:25; Start 03/31/17 at 13:15 Lorazepam (Ativan) 4 mg 1X ONCE IV Last administered on 03/31/17 13:27; Start 03/31/17 at 13:30; Stop 03/31/17 at 13:31; Status DC Ondansetron HCl (Zofran) 4 mg PRN Q8HRS PRN IV NAUSEA/VOMITING Last administered on 03/31/17 15:24; Start 03/31/17 at 13:30; Stop 04/01/17 at 13 :29 Sodium Chloride 1,000 ml @ 125 mls/hr Q8H IV Last administered on 04/01/17 07:20; Start 03/31/17 at 13:16; Stop 04/01/17 at 13:15 Multivitamins 10 ml/Folic Acid 1 mg/Thiamine HCl 100 mg/Dextrose/ Sodium Chloride 1,011.1 ml @ 100 mls/ hr DAILY IV ; Start 04/01/17 at 09:00; Status UNV Chlordiazepoxide (Librium) 25 mg PRN Q6HRS PRN PO ANXIETY / AGITATION; Start 03/31/17 at 14:15 Alprazolam (Xanax) 0.25 mg PRN Q8HRS PRN PO ANXIETY / AGITATION; Start at 14:15 Zolpidem Tartrate (Ambien) 5 mg PRN QHS PRN PO INSOMNIA; Start 03/31/17 at 14: 15 Finasteride (Proscar) 5 mg DAILY PO Last administered on 04/01/17 08:34; Start 04/01/17 at 09:00 [place] Carbonate ([place] Carbonate) 150 mg HS PO Last administered on 20:06; Start 03/31/17 at 21:00 Lorazepam (Ativan) 1 mg TID PO Last administered on 04/01/17 08:35; Start at 14:30 Lorazepam (Ativan) 1 mg TID PO ; Start 03/31/17 at 21:00; Status UNV Pantoprazole Sodium (Protonix) 40 mg DAILYAC PO Last administered on 08:34; Start 04/01/17 at 07:30 Quetiapine Fumarate (SEROquel) 25 mg HS PO Last administered on 03/31/17 19: 57; Start 03/31/17 at 21:00 Citalopram Hydrobromide (CeleXA) 40 mg DAILY PO Last administered on 08:35; Start 04/01/17 at 09:00 Lamotrigine (LaMICtal) 150 mg DAILY PO Last administered on 04/01/17 08:36; Start 04/01/17 at 09:00 Ibuprofen (Motrin) 600 mg PRN Q6HRS PRN PO INFLAMMATION Last administered on 08:35; Start 03/31/17 at 16:15 Ketorolac Tromethamine (Toradol) 30 mg 1X ONCE IV Last administered on 16:46; Start 03/31/17 at 16:30; Stop 03/31/17 at 16:31; Status DC Metoprolol Tartrate (Lopressor) 5 mg 1X ONCE IVP Last administered on 11:51; Start 04/01/17 at 12:15; Stop 04/01/17 at 12:16 Active Scripts Active Ativan (Lorazepam) 1 Mg Tablet 1 Mg PO TID Lorazepam 1 Mg Tablet 1 Tab PO TID Reported Lamotrigine 150 Mg Tablet 150 Mg PO DAILY [place] Carbonate 150 Mg Capsule 150 Mg PO HS Escitalopram Oxalate 20 Mg Tablet 20 Mg PO DAILY Pantoprazole Sodium 40 Mg Tablet.dr 40 Mg PO DAILY Seroquel (Quetiapine Fumarate) 25 Mg Tablet 25 Mg PO HS Finasteride 5 Mg Tablet 5 Mg PO DAILY Vitals/I & O Vital Sign - Last 24 Hours 10/17/17 10/17/17 10/17/17 10/17/17 12:30 13:30 15:00 16:00 Temp 98.8 98.8 Pulse 84 122 136 Resp 29 B/P (MAP) 113/71 (85) 125/75 (92) 126/85 (99) Pulse Ox 95 95 92 O2 Delivery Room Air Room Air Room Air 03/31/17 03/31/17 03/31/17 03/31/17 16:00 17:00 18:00 20:00 Temp 98.8 98.8 Pulse 132 114 125 116 Resp 29 12 22 22 B/P (MAP) 120/66 (84) 107/62 (77) 108/57 (74) 112/69 (83) Pulse Ox 92 93 93 93 O2 Delivery Room Air Room Air Room Air Room Air 03/31/17 03/31/17 03/31/17 03/31/17 20:00 21:00 22:00 23:00 Pulse 110 106 96 Resp 19 22 18 B/P (MAP) 124/72 (89) 119/70 (86) 134/76 (95) Pulse Ox 94 95 95 O2 Delivery Room Air Room Air Room Air Room Air 03/31/17 04/01/17 04/01/17 04/01/17 23:59 00:01 01:00 02:00 Temp 98.6 98.6 Pulse 90 90 85 Resp 16 16 12 B/P (MAP) 119/90 (100) 125/91 (102) 123/85 (98) Pulse Ox 97 96 96 O2 Delivery Room Air Room Air Room Air Room Air 04/01/17 04/01/17 04/01/17 04/01/17 03:00 03:55 04:00 05:00 Temp 98.8 98.8 Pulse 88 81 91 Resp 16 14 12 B/P (MAP) 121/84 (96) 126/93 (104) 119/87 (98) Pulse Ox 93 95 95 O2 Delivery Room Air Room Air Room Air Room Air 04/01/17 04/01/17 04/01/17 04/01/17 06:00 07:20 07:56 08:20 Temp 97.6 97.6 Pulse 86 86 94 Resp 13 14 12 B/P (MAP) 121/90 (100) 121/90 (100) 149/96 (113) Pulse Ox 94 O2 Delivery Room Air Room Air Room Air Room Air 04/01/17 04/01/17 04/01/17 04/01/17 09:00 10:12 11:12 11:51 Pulse 108 104 123 127 Resp 17 16 B/P (MAP) 155/92 (113) 153/89 (110) 158/94 (115) 158/94 Pulse Ox 98 95 94 O2 Delivery Room Air Room Air Room Air Intake and Output 04/01/17 04/01/17 04/02/17 15:00 23:00 07:00 Intake Total 360 ml Output Total 500 ml Balance -140 ml LITO MELCHOR III DO Apr 01, 2017 12:24
[2017-04-01] MEDS ORDERED: METO25TA4 PO (13:54)
[2017-04-01] MEDS ORDERED: LORA-434 PO (13:57)
[2017-04-01] MEDS ORDERED: METOPROLOL TART IMMED RELEASE 25 MG TABLET. PO ONE (15:00)
--- NOTE | 2017-04-02 12:00 | DS ---
DATE OF DISCHARGE: 04/01/2017 DATE OF ADMISSION: 03/31/2017 DATE OF DISCHARGE: 04/01/2017 ADMISSION DIAGNOSIS: Alcohol withdrawal. DISCHARGE DIAGNOSIS: Resolving alcohol withdrawal. 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 We gave him banana bags and benzos. This morning, he is doing better and wants to go home. DISPOSITION: Home. ACTIVITY: As tolerated. DIET: Low sodium. MEDICATIONS: Please see the MRAD. TOTAL TIME ON DISCHARGE: 31 minutes. SERINAL Barrington MELCHOR DO DR: GWEN/edward JOB#: [id number] / [id number]
== END 2017-04-01 16:28 | disposition home or self-care (01) | DRG 897 ==
LOC: ER 11:27 → 1 WEST ICU 13:20
PROVIDERS: ADMIT Internal Medicine; ATTEND Internal Medicine
DX: F10.239 Alcohol dependence with withdrawal, unspecified (principal); R56.9 Unspecified convulsions; F13.239 Sedative, hypnotic or anxiolytic dependence with withdrawal, unspecified; F32.9 Major depressive disorder, single episode, unspecified; F41.9 Anxiety disorder, unspecified; Z86.711 Personal history of pulmonary embolism
CPT/HCPCS: 36415; 80053; 80307; 80329; 81001; 82553; 83690; 83735; 85025; 87641; 93005; 96365; 96366; 96375; 96376; G0480; J1885; J2060; J2405; J3490; J7030; S0028; 99285-25; G0479

== ENCOUNTER 2017-05-18 17:26 | Inpatient (IN) | payer BC, OTHER ==
[~2017-05-18] VITALS: Ht 180.3 cm; Wt 89.6 kg
[~2017-05-18 17:26] MED LIST changes: -LAMO150T PO; +LAMO150T2 PO; +METO25TA4 PO
[2017-05-18] MEDS ORDERED: MULTIVIT INFUSN,ADULT 4,VIT K 10 ML, THIAMINE 100 MG, FOLIC ACID 1 MG in IV NORMAL SALI... IV SCH (18:15)
[2017-05-18 18:25] LABS: BILIRUBIN,URINE NEGATIVE (NEG); GLUCOSE,URINE NEGATIVE (NEG); NITRITE,URINE NEGATIVE (NEG); PROTEIN,URINE NEGATIVE (NEG-TRACE); UROBILINOGEN,URINE 0.2 mg/dL (0.2 mg/dL)
[2017-05-18 18:32] LABS: BACTERIA,URINE 0 /HPF (0-FEW); BARBITURATES NEG (NEG); BENZODIAZEPINES NEG (NEG); CANNABINOIDS NEG (NEG); COCAINE NEG (NEG); METHADONE NEG (NEG); OPIATES NEG (NEG); PHENCYCLIDINE NEG (NEG); RBC,URINE 0 /HPF (0-2); WBC,URINE 0 /HPF (0-4)
[2017-05-18 18:42] LABS: BASO # 0.1 x10^3/uL (0.0-0.2); BASO % 1 % (0-3); EOS % 5 % (0-3); HEMATOCRIT 43.1 % (39.0-53.0); HEMOGLOBIN 14.4 g/dL (13.0-17.5); LYMPH # 1.8 x10^3/uL (1.0-4.8); LYMPH % 20 % (24-48); MEAN CORPUSCULAR HEMOGLOBIN 32 pg (25-35); MEAN CORPUSCULAR HGB CONC 34 g/dL (31-37); MEAN CORPUSCULAR VOLUME 95 fL (79-100); MONO % 5 % (0-9); NEUT % 70 % (31-73); PLATELET COUNT 241 x10^3/uL (140-400); RED BLOOD COUNT 4.52 x10^6/uL (4.30-5.70); RED CELL DISTRIBUTION WIDTH 14.6 % (11.5-14.5)
[2017-05-18 19:21] LABS: CALCIUM 8.4 mg/dL (8.5-10.1); CREATININE 0.9 mg/dL (0.7-1.3); GFR 86.7; POTASSIUM 4.4 mmol/L (3.5-5.1)
[2017-05-18 19:26] LABS: MAGNESIUM 2.2 mg/dL (1.8-2.4); TOTAL BILIRUBIN 0.4 mg/dL (0.2-1.0); TOTAL PROTEIN 7.9 g/dL (6.4-8.2)
[2017-05-18] MEDS: IV NORMAL SALINE 1000ML BAG 1,000 ML IV SCH (21:00)
[2017-05-18] MEDS ORDERED: cloNIDine HCL 0.1 MG TABLET PO PRN (21:45)
[2017-05-18] MEDS ORDERED: diphenhydrAMINE 50 MG/ML VIAL IVP PRN (21:45)
[2017-05-18] MEDS ORDERED: HALOPERIDOL LACTATE 5 MG/ML VIAL. IVP PRN (21:45)
[2017-05-18 22:00] VITALS: BP 132/67
[2017-05-18 22:15] VITALS: BP 107/60
[2017-05-18 22:30] VITALS: BP 118/67
--- NOTE | 2017-05-18 22:43 | PDOC1 ---
History and Physical Date of Admission Date of Admission DATE: 05/18/17 TIME: 22:35 Identification/Chief Complaint Chief Complaint "I am in EtOH withdrawl" Problems: Source Source: Chart review, Patient History of Present Illness History of Present Illness Mr. Jamison presented to the ER complaining of EtOH withdrawl . He was tremulous and irritated, HR up. He has prior hx of EtOH abuse, and has been admitted here a few times before for the same. He is educated in the meds, and even asked the FORGE TENDER what the benzo protocol is at this hospital. It seems he may be visiting other hospitals and having mult withdrawl events. He brought a large gym bag with clothes and personal items. 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 Family History: No Significant, Other Social History Smoke: No ALCOHOL: heavy Drugs: None Current Problem List Problem List Problems Medical Problems: (1) Alcohol withdrawal Status: Acute Problems: Current Medications Current Medications Current Medications Multivitamins 10 ml/Thiamine HCl 100 mg/Folic Acid 1 mg/Sodium Chloride 1,011.2 ml @ 1,000 mls/ hr Q1H IV Last administered on 05/18/17 18:37; Start at 18:15; Stop 05/18/17 at 18:37; Status DC Diazepam (Valium) 5 mg PRN Q5MIN PRN IV COMM Last administered on 05/18/17 21: 03; Start 05/18/17 at 18:00 Diazepam (Valium) 10 mg PRN Q5MIN PRN IV COMM; Start 05/18/17 at 18:00 Ondansetron HCl (Zofran) 4 mg PRN Q8HRS PRN IV NAUSEA/VOMITING; Start 05/18/17 at 20:15; Stop 05/19/17 at 20:14 Sodium Chloride 1,000 ml @ 125 mls/hr Q8H IV Last administered on 05/18/17 21 :00; Start 05/18/17 at 20:15; Stop 05/19/17 at 20:14 Acetaminophen (Tylenol) 650 mg PRN Q4HRS PRN PO FEVER; Start 05/18/17 at 20:15 ; Stop 05/19/17 at 20:14 Lorazepam (Ativan) 4 mg PRN Q1HR PRN PO For CIWA 8-14; Start 05/18/17 at 21:45 Lorazepam (Ativan) 8 mg PRN Q1HR PRN PO For CIWA 15 or greater; Start 05/18/17 at 21:45 Haloperidol Lactate (Haldol) 5 mg PRN Q4HRS PRN IVP Hallucinatns,Confusn, Delirium; Start 05/18/17 at 21:45 Diphenhydramine HCl (Benadryl) 25 mg PRN Q15MIN PRN IVP EPS symptoms 2'Haldol admin; Start 05/18/17 at 21:45 Clonidine HCl (Catapres) 0.1 mg PRN Q1HR PRN PO SBP > 180 or DBP > 100, MRX3; Start 05/18/17 at 21:45 Lorazepam (Ativan) 4 mg PRN Q1HR PRN IV For CIWA 15 or greater Last administered on 05/18/17t 21:51; Start 05/18/17 at 21:45 Active Scripts Active Reported Ativan (Lorazepam) 1 Mg Tablet 1 Mg PO Q12HR PRN Metoprolol Tartrate 25 Mg Tablet 1 Tab PO BID Lamotrigine 150 Mg Tablet 150 Mg PO DAILY [place] Carbonate 150 Mg Capsule 150 Mg PO HS Escitalopram Oxalate 20 Mg Tablet 20 Mg PO DAILY Pantoprazole Sodium 40 Mg Tablet.dr 40 Mg PO DAILY Seroquel (Quetiapine Fumarate) 25 Mg Tablet 25 Mg PO HS Finasteride 5 Mg Tablet 5 Mg PO DAILY Allergies Allergies: Coded Allergies: Penicillins (Verified Allergy, Intermediate, Rash, 10/19/15) ROS General: No: Chills, Night Sweats, Fatigue, Malaise, Appetite, Other PSYCHOLOGICAL ROS: YES: Anxiety, Depression, Irritablity, Sleep disturbances, No: Behavioral Disorder, Concentration difficultie, Decreased libido, Disorientation, Hallucinations, Hostility, Memory difficulties, Mood Swings, Obsessive thoughts, Other Eyes: No Blurry vision, No Decreased vision, No Double vision, No Dry eyes, No Excessive tearing, No Eye Pain, No Itchy Eyes, No Loss of vision, No Photophobia , No Scotomata, No Uses contacts, No Uses glasses, No Other HEENT: No: Heacaches, Visual Changes, Hearing change, Nasal congestion, Nasal discharge, Oral lesions, Sinus pain, Sore Throat, Epistaxis, Sneezing, Snoring, Tinnitus, Vertigo, Vocal changes, Other Respiratory: No: Cough, Hemoptysis, Orthopnea, Pleuritic Pain, Shortness of breath, SOB with excertion, Sputum Changes, Stridor, Tachypnea, Wheezing, Other Cardiovascular: yes Palpitations, yes Other, No Chest Pain, No Orthopnea, No Paroxysmal Noc. Dyspnea, No Edema, No Lt Headedness Gastrointestinal: Yes Nausea, Yes Abdominal Pain, No Vomiting, No Diarrhea, No Constipation, No Melena, No Hematochezia, No Other Genitourinary: No Dysuria, No Frequency, No Incontinence, No Hematuria, No Retention, No Discharge, No Urgency, No Pain, No Flank Pain, No Other, No , No , No , No , No , No , No Musculoskeletal: No Gait Disturbance, No Joint Pain, No Joint Stiffness, No Joint Swelling, No Muscle Pain, No Muscular Weakness, No Pain In:, No Swelling In:, No Other Neurological: No Behavorial Changes, No Bowel/Bladder ControlChng, No Confusion , No Dizziness, No Gait Disturbance, No Headaches, No Impaired Coord/balance, No Memory Loss, No Numbness/Tingling, No Seizures, No Speech Problems, No Tremors, No Visual Changes, No Weakness, No Other Skin: Yes Dry Skin, No Eczema, No Hair Changes, No Lumps, No Mole Changes, No Mottling, No Nail Changes, No Pruritus, No Rash, No Skin Lesion Changes, No Other, No Acne Physical Exam General: Alert, Oriented X3, mild distress, moderate distress HEENT: Atraumatic, PERRLA, EOMI Heart: no murmurs, other (tachy) Abdomen: Normal bowel sounds, Soft Rectal Exam: not examined Extremities: No clubbing, No edema, Normal pulses Skin: No significant lesion Neuro: Normal speech, Sensation intact, Other (pressured, ) Psych/Mental Status: Other (agitated, does not remember me, I have seen him twice before) Vitals Vitals Vital Signs Date Time Temp Pulse Resp B/P (MAP) Pulse Ox O2 Delivery O2 Flow Rate FiO2 05/18/17 21:48 104 18 135/76 (95) 98 Room Air 05/18/17 17:35 98.0 98.0 Labs Labs Laboratory Tests Test 05/18/17 18:15 05/18/17 18:25 Urine Collection Type Void Urine Color Yellow Urine Clarity Clear Urine pH 7.0 Urine Specific [place] <=1.005 Urine Protein Negative mg/dL (NEG-TRACE) Urine Glucose (UA) Negative mg/dL (NEG) Urine Ketones (Stick) Negative mg/dL (NEG) Urine Blood Negative (NEG) Urine Nitrite Negative (NEG) Urine Bilirubin Negative (NEG) Urine Urobilinogen Dipstick 0.2 mg/dL (0.2 mg/dL) Urine Leukocyte Esterase Negative (NEG) Urine RBC 0 /HPF (0-2) Urine WBC 0 /HPF (0-4) Urine Squamous Epithelial Cells None /LPF Urine Bacteria 0 /HPF (0-FEW) Urine Opiates Screen Neg (NEG) Urine Methadone Screen Neg (NEG) Urine Barbiturates Neg (NEG) Urine Phencyclidine Screen Neg (NEG) Urine Amphetamine/Methamphetamine Neg (NEG) Urine Benzodiazepines Screen Neg (NEG) Urine Cocaine Screen Neg (NEG) Urine Cannabinoids Screen Neg (NEG) Urine Ethyl Alcohol Pos (NEG) White Blood Count 9.0 x10^3/uL (4.0-11.0) Red Blood Count 4.52 x10^6/uL (4.30-5.70) Hemoglobin 14.4 g/dL (13.0-17.5) Hematocrit 43.1 % (39.0-53.0) Mean Corpuscular Volume 95 fL (79-100) Mean Corpuscular Hemoglobin 32 pg (25-35) Mean Corpuscular Hemoglobin Concent 34 g/dL (31-37) Red Cell Distribution Width 14.6 % (11.5-14.5) Platelet Count 241 x10^3/uL (140-400) Neutrophils (%) (Auto) 70 % (31-73) Lymphocytes (%) (Auto) 20 % (24-48) Monocytes (%) (Auto) 5 % (0-9) Eosinophils (%) (Auto) 5 % (0-3) Basophils (%) (Auto) 1 % (0-3) Neutrophils # (Auto) 6.3 x10^3uL (1.8-7.7) Lymphocytes # (Auto) 1.8 x10^3/uL (1.0-4.8) Monocytes # (Auto) 0.4 x10^3/uL (0.0-1.1) Eosinophils # (Auto) 0.4 x10^3/uL (0.0-0.7) Basophils # (Auto) 0.1 x10^3/uL (0.0-0.2) Sodium Level 128 mmol/L (136-145) Potassium Level 4.4 mmol/L (3.5-5.1) Chloride Level 90 mmol/L (98-107) Carbon Dioxide Level 23 mmol/L (21-32) Anion Gap 15 (6-14) Blood Urea Nitrogen 8 mg/dL (8-26) Creatinine 0.9 mg/dL (0.7-1.3) Estimated GFR (Cockcroft-Gault) 86.7 BUN/Creatinine Ratio 9 (6-20) Glucose Level 98 mg/dL (70-99) Calcium Level 8.4 mg/dL (8.5-10.1) Magnesium Level 2.2 mg/dL (1.8-2.4) Total Bilirubin 0.4 mg/dL (0.2-1.0) Aspartate Amino Transf (AST/SGOT) 37 U/L (15-37) Alanine Aminotransferase (ALT/SGPT) 28 U/L (16-63) Alkaline Phosphatase 60 U/L (46-116) Total Protein 7.9 g/dL (6.4-8.2) Albumin 4.0 g/dL (3.4-5.0) Albumin/Globulin Ratio 1.0 (1.0-1.7) Ethyl Alcohol Level 363 mg/dL (0-10) Laboratory Tests Test 05/18/17 18:15 05/18/17 18:25 Urine Collection Type Void Urine Color Yellow Urine Clarity Clear Urine pH 7.0 Urine Specific [place] <=1.005 Urine Protein Negative mg/dL (NEG-TRACE) Urine Glucose (UA) Negative mg/dL (NEG) Urine Ketones (Stick) Negative mg/dL (NEG) Urine Blood Negative (NEG) Urine Nitrite Negative (NEG) Urine Bilirubin Negative (NEG) Urine Urobilinogen Dipstick 0.2 mg/dL (0.2 mg/dL) Urine Leukocyte Esterase Negative (NEG) Urine RBC 0 /HPF (0-2) Urine WBC 0 /HPF (0-4) Urine Squamous Epithelial Cells None /LPF Urine Bacteria 0 /HPF (0-FEW) Urine Opiates Screen Neg (NEG) Urine Methadone Screen Neg (NEG) Urine Barbiturates Neg (NEG) Urine Phencyclidine Screen Neg (NEG) Urine Amphetamine/Methamphetamine Neg (NEG) Urine Benzodiazepines Screen Neg (NEG) Urine Cocaine Screen Neg (NEG) Urine Cannabinoids Screen Neg (NEG) Urine Ethyl Alcohol Pos (NEG) White Blood Count 9.0 x10^3/uL (4.0-11.0) Red Blood Count 4.52 x10^6/uL (4.30-5.70) Hemoglobin 14.4 g/dL (13.0-17.5) Hematocrit 43.1 % (39.0-53.0) Mean Corpuscular Volume 95 fL (79-100) Mean Corpuscular Hemoglobin 32 pg (25-35) Mean Corpuscular Hemoglobin Concent 34 g/dL (31-37) Red Cell Distribution Width 14.6 % (11.5-14.5) Platelet Count 241 x10^3/uL (140-400) Neutrophils (%) (Auto) 70 % (31-73) Lymphocytes (%) (Auto) 20 % (24-48) Monocytes (%) (Auto) 5 % (0-9) Eosinophils (%) (Auto) 5 % (0-3) Basophils (%) (Auto) 1 % (0-3) Neutrophils # (Auto) 6.3 x10^3uL (1.8-7.7) Lymphocytes # (Auto) 1.8 x10^3/uL (1.0-4.8) Monocytes # (Auto) 0.4 x10^3/uL (0.0-1.1) Eosinophils # (Auto) 0.4 x10^3/uL (0.0-0.7) Basophils # (Auto) 0.1 x10^3/uL (0.0-0.2) Sodium Level 128 mmol/L (136-145) Potassium Level 4.4 mmol/L (3.5-5.1) Chloride Level 90 mmol/L (98-107) Carbon Dioxide Level 23 mmol/L (21-32) Anion Gap 15 (6-14) Blood Urea Nitrogen 8 mg/dL (8-26) Creatinine 0.9 mg/dL (0.7-1.3) Estimated GFR (Cockcroft-Gault) 86.7 BUN/Creatinine Ratio 9 (6-20) Glucose Level 98 mg/dL (70-99) Calcium Level 8.4 mg/dL (8.5-10.1) Magnesium Level 2.2 mg/dL (1.8-2.4) Total Bilirubin 0.4 mg/dL (0.2-1.0) Aspartate Amino Transf (AST/SGOT) 37 U/L (15-37) Alanine Aminotransferase (ALT/SGPT) 28 U/L (16-63) Alkaline Phosphatase 60 U/L (46-116) Total Protein 7.9 g/dL (6.4-8.2) Albumin 4.0 g/dL (3.4-5.0) Albumin/Globulin Ratio 1.0 (1.0-1.7) Ethyl Alcohol Level 363 mg/dL (0-10) VTE Prophylaxis Ordered VTE Prophylaxis Devices: No VTE Pharmacological Prophylaxi: Yes Assessment/Plan Assessment/Plan Acute toxic encephalopathy EtOH abuse and intoxication Gap metabolic acidosis, EtOH Hyponatremia, beer potomania, dry, hydrate, banana bag given EtOH withdrawl symptoms already, he felt no benefit to 15mg valium will order ativan, some concern for a prior history of addiction, but CIWS score now 15 in ER admit VELVET ROWE MD May 18, 2017 22:42
[2017-05-18 22:45] VITALS: BP 117/67
[2017-05-18 23:00] VITALS: BP 129/83
[2017-05-18 23:30] VITALS: BP 114/61
[2017-05-19] VITALS (9 sets, daily range): BP systolic 96–144; BP diastolic 49–94
[2017-05-19] MEDS: QUEtiapine 25 MG TABLET. PO SCH ×2 (00:50→23:00)
--- NOTE | 2017-05-19 01:01 | ED.ADGEN ---
Past Medical History Past Medical History: Alcoholism, Anxiety, Depression, Other Additional Past Medical Histor: PULMONARY EMBOLUS 2014,ETOH & BENZO WITHDRAWAL Past Surgical History: Other Additional Past Surgical Histo: BILAT KNEE ARTHROSCOPY, bilat shoulder arthroscopy,NASAL SURG Alcohol Use: Heavy Additional Information: PATIENT STATES, "I DON'T DRINK EVERY DAY, & IF I DO DRINK, I DRINK 10 BEERS A DAY." Drug Use: Benzodiazepine Adult General Chief Complaint Chief Complaint: WITHDRAWL HPI HPI Patient is a 56 year old man, history of alcohol abuse with alcohol withdrawal , who presents to the emergency department with complaint of alcohol withdrawal symptoms, requesting detox. Patient states "I can't do this anymore". He states that he last had a drink alcohol but 9 AM. He drinks about a 12 pack of beer daily. He states that he has been through detox previously, states lasted about 2 years ago, he states that recent social stressors have caused him to drink more heavily. He denies any self injures behaviors, any suicidal or homicidal ideation. He states he is feeling slightly short of breath, states "twisted my anxiety". Patient states he is feeling very shaky, denies any chest pain, any weakness, numbness, tingling, recent injuries, states he's had several episodes of nausea and vomiting over the past several days, denies any nausea currently. Denies any focal weakness, numbness or tingling. Initial CIWA score of 7. Review of Systems Review of Systems Constitutional: Denies fever or chills. []Generalized malaise and "shakiness". Eyes: Denies change in visual acuity. [] HENT: Denies nasal congestion or sore throat. [] Respiratory: Denies cough, shortness of breath. Cardiovascular: Denies chest pain or edema. [] GI: Denies abdominal pain, bloody stools or diarrhea. [] Complaining of occasional nausea and vomiting. : Denies dysuria. [] Musculoskeletal: Denies back pain or joint pain. [] Integument: Denies rash. [] Neurologic: Denies headache, focal weakness or sensory changes. []"Shakiness". Endocrine: Denies polyuria or polydipsia. [] Lymphatic: Denies swollen glands. [] Psychiatric: Complaining of anxiety. Current Medications Current Medications Current Medications Medications (Trade) Dose Ordered Sig/Claire Start Time Stop Time Status Last Admin Dose Admin Diazepam (Valium) 10 mg PRN Q5MIN PRN 05/18/17 18:00 Multivitamins 10 ml/Thiamine HCl 100 mg/Folic Acid 1 mg/Sodium Chloride 1,011.2 ml @ 1,000 mls/ hr Q1H 05/18/17 18:15 05/18/17 18:37 DC 05/18/17 18:37 1,000 MLS/HR Allergies Allergies Allergies Coded Allergies Type Severity Reaction Last Updated Verified Penicillins Allergy Intermediate Rash 10/19/15 Yes Physical Exam Physical Exam Constitutional: Well developed, well nourished, no acute distress, non-toxic appearance. [] HENT: Normocephalic, atraumatic, bilateral external ears normal, oropharynx moist, no oral exudates, nose normal. [] Eyes: PERRLA, EOMI, conjunctiva normal, no discharge. [] Neck: Normal range of motion, no tenderness, supple, no stridor. [] Cardiovascular:Heart rate regular rhythm, no murmur, S1, S2, no rubs or gallops. [] Lungs & Thorax: Bilateral breath sounds clear to auscultation, no wheezing, rhonchi, rales. No chest wall crepitus or tenderness. [] Abdomen: Bowel sounds normal, soft, no tenderness, no rebound, rigidity, no guarding, no masses, no pulsatile masses. [] Skin: Warm, dry, no erythema, no rash. [] Back: No tenderness, no CVA tenderness. [] Extremities: No tenderness, no cyanosis, no clubbing, ROM intact, no edema. Negative Homans sign.[] Neurologic: Alert and oriented X 3, normal motor function, normal sensory function, no focal deficits noted. [] Psychologic: Patient with rapid speech, judgment appears normal, is anxious in appearance. Current Patient Data Vital Signs Vital Signs Date Time Temp Pulse Resp B/P (MAP) Pulse Ox O2 Delivery O2 Flow Rate FiO2 05/18/17 19:48 104 19 121/70 (87) 96 Room Air 05/18/17 17:35 98.0 98.0 Lab Values Laboratory Tests Test 05/18/17 18:15 05/18/17 18:25 Urine Collection Type Void Urine Color Yellow Urine Clarity Clear Urine pH 7.0 Urine Specific [place] <=1.005 Urine Protein Negative mg/dL (NEG-TRACE) Urine Glucose (UA) Negative mg/dL (NEG) Urine Ketones (Stick) Negative mg/dL (NEG) Urine Blood Negative (NEG) Urine Nitrite Negative (NEG) Urine Bilirubin Negative (NEG) Urine Urobilinogen Dipstick 0.2 mg/dL (0.2 mg/dL) Urine Leukocyte Esterase Negative (NEG) Urine RBC 0 /HPF (0-2) Urine WBC 0 /HPF (0-4) Urine Squamous Epithelial Cells None /LPF Urine Bacteria 0 /HPF (0-FEW) Urine Opiates Screen Neg (NEG) Urine Methadone Screen Neg (NEG) Urine Barbiturates Neg (NEG) Urine Phencyclidine Screen Neg (NEG) Urine Amphetamine/Methamphetamine Neg (NEG) Urine Benzodiazepines Screen Neg (NEG) Urine Cocaine Screen Neg (NEG) Urine Cannabinoids Screen Neg (NEG) Urine Ethyl Alcohol Pos (NEG) White Blood Count 9.0 x10^3/uL (4.0-11.0) Red Blood Count 4.52 x10^6/uL (4.30-5.70) Hemoglobin 14.4 g/dL (13.0-17.5) Hematocrit 43.1 % (39.0-53.0) Mean Corpuscular Volume 95 fL (79-100) Mean Corpuscular Hemoglobin 32 pg (25-35) Mean Corpuscular Hemoglobin Concent 34 g/dL (31-37) Red Cell Distribution Width 14.6 % (11.5-14.5) H Platelet Count 241 x10^3/uL (140-400) Neutrophils (%) (Auto) 70 % (31-73) Lymphocytes (%) (Auto) 20 % (24-48) L Monocytes (%) (Auto) 5 % (0-9) Eosinophils (%) (Auto) 5 % (0-3) H Basophils (%) (Auto) 1 % (0-3) Neutrophils # (Auto) 6.3 x10^3uL (1.8-7.7) Lymphocytes # (Auto) 1.8 x10^3/uL (1.0-4.8) Monocytes # (Auto) 0.4 x10^3/uL (0.0-1.1) Eosinophils # (Auto) 0.4 x10^3/uL (0.0-0.7) Basophils # (Auto) 0.1 x10^3/uL (0.0-0.2) Sodium Level 128 mmol/L (136-145) L Potassium Level 4.4 mmol/L (3.5-5.1) Chloride Level 90 mmol/L (98-107) L Carbon Dioxide Level 23 mmol/L (21-32) Anion Gap 15 (6-14) H Blood Urea Nitrogen 8 mg/dL (8-26) Creatinine 0.9 mg/dL (0.7-1.3) Estimated GFR (Cockcroft-Gault) 86.7 BUN/Creatinine Ratio 9 (6-20) Glucose Level 98 mg/dL (70-99) Calcium Level 8.4 mg/dL (8.5-10.1) L Magnesium Level 2.2 mg/dL (1.8-2.4) Total Bilirubin 0.4 mg/dL (0.2-1.0) Aspartate Amino Transferase (AST) 37 U/L (15-37) Alanine Aminotransferase (ALT) 28 U/L (16-63) Alkaline Phosphatase 60 U/L (46-116) Total Protein 7.9 g/dL (6.4-8.2) Albumin 4.0 g/dL (3.4-5.0) Albumin/Globulin Ratio 1.0 (1.0-1.7) Ethyl Alcohol Level 363 mg/dL (0-10) H Laboratory Tests 05/18/17 18:25 Laboratory Tests 05/18/17 18:25 EKG EKG EC: Sinus rhythm, heart rate 97 bpm, upright axis, QTC of 446, NC 150, QRS of 98, patient with contour normality is noted in the anterior lateral leads , with [address] elevation noted in V2, through V6. Abnormal ECG, does not meet STEMI criteria. As interpreted by me. Radiology/Procedures Radiology/Procedures Chest x-ray: One view: Patient with hyperinflation noted, limited evaluation due to imaging positioning, however no infiltrates, effusions, pneumothorax, soft tissue or bone abdomen abnormalities identified, patient with normal cardiac silhouette. As interpreted by me.[] Course & Med Decision Making Course & Med Decision Making Pertinent Labs and Imaging studies reviewed. (See chart for details) Patient initiated on alcohol withdrawal protocol based on his history and complaints. Noted to be tachycardic upon arrival to the emergency department, heart rate in the low 100s to 1 teens, blood pressures are within normal limits. Patient received Valium per the protocol, laboratory studies reveal the patient has a blood level of 363, is clinically sober, sodium is 128, patient with banana bag infusing. I did discuss findings as above with Dr. Redd of internal medicine, patient accepted to his service as a full admission to the ICU for initiation of alcohol withdrawal protocol and monitoring. is bridge orders entered, including consultation for the psychiatric assessment team for detox placement. Patient transferred to the ICU without issue. Dragon Disclaimer Dragon Disclaimer This electronic medical record was generated, in whole or in part, using a voice recognition dictation system. Departure Impression: Primary Impression: Alcohol withdrawal Additional Impression: Anxiety Disposition: 09 ADMITTED INPATIENT Admitting Physician: Laura Redd Condition: IMPROVED Problem Qualifiers AKIN NUR DO May 19, 2017 01:01
[2017-05-19] MEDS: IV NORMAL SALINE 1000ML BAG 1,000 ML IV SCH ×2 (05:09→12:12)
--- NOTE | 2017-05-19 06:27 | EKG ---
[facility] [address] [place] [id number] Test Date: 2017-05-18 Test Time: 18:40:27 Pat Name: HAYLEE GRIMM Department: Room: Gender: M [employer]: : 1960 Requested By: AKIN NUR Order Number: [id number] Reading MD: Measurements Intervals [place] Rate: 97 P: 43 IN: 150 QRS: 36 QRSD: 98 T: 23 QT: 348 QTc: 446 Interpretive Statements SINUS RHYTHM QRS(T) CONTOUR ABNORMALITY CONSIDER ANTEROLATERAL MYOCARDIAL DAMAGE POSSIBLY ABNORMAL ECG RI6.01 No previous ECG available for comparison
[2017-05-19 06:34] LABS: BASO % 1 % (0-3); EOS % 6 % (0-3); HEMATOCRIT 37.7 % (39.0-53.0); HEMOGLOBIN 12.4 g/dL (13.0-17.5); LYMPH # 1.6 x10^3/uL (1.0-4.8); LYMPH % 31 % (24-48); MEAN CORPUSCULAR HEMOGLOBIN 32 pg (25-35); MEAN CORPUSCULAR HGB CONC 33 g/dL (31-37); MEAN CORPUSCULAR VOLUME 97 fL (79-100); MONO % 13 % (0-9); NEUT % 50 % (31-73); PLATELET COUNT 203 x10^3/uL (140-400); RED BLOOD COUNT 3.88 x10^6/uL (4.30-5.70); RED CELL DISTRIBUTION WIDTH 14.7 % (11.5-14.5); WHITE BLOOD COUNT 5.1 x10^3/uL (4.0-11.0)
[2017-05-19 06:47] LABS: CALCIUM 8.1 mg/dL (8.5-10.1); CREATININE 0.8 mg/dL (0.7-1.3); GFR 99.3; POTASSIUM 4.3 mmol/L (3.5-5.1)
[2017-05-19] MEDS: ONDANSETRON PF 4 MG/2 ML VIAL. IV PRN ×2 (08:05→14:55)
--- NOTE | 2017-05-19 08:09 | RAD ---
Indication: EtOH withdrawal. Time of exam 1859 hours. Correlation is made with prior chest from 08/31/2015. FINDINGS: The heart size is normal. The lungs are clear. No pleural effusion or pneumothorax is identified. The pulmonary vascularity is normal. IMPRESSION: No acute abnormality detected.
[2017-05-19] MEDS: ACETAMINOPHEN 325 MG TABLET. PO PRN ×2 (08:33→16:54)
[2017-05-19] MEDS ORDERED: HYDROcodone/APAP 5/325MG 1 TAB TABLET PO PRN (10:45)
--- NOTE | 2017-05-19 12:18 | PDOC ---
PROGRESS NOTES Chief Complaint Chief Complaint alcohol intoxication, with levels greater than 300 on admission History of Present Illness History of Present Illness still shaky. Gets better when active is given. Did not eat much today. Went to the bathroom gait somewhat unsteady today discussed with KAY Bourgeois PlaN of care: Not ready for discharge today PT OT tomorrow Continue alcohol withdrawal precautions. hopefully will be able to discharge tomorrow when get more steady. Discussed with KAY Bourgeois Start Librium Vitals Vitals Vital Signs Date Time Temp Pulse Resp B/P (MAP) Pulse Ox O2 Delivery O2 Flow Rate FiO2 05/19/17 08:00 Room Air 05/19/17 07:00 98.1 98 20 138/89 (105) 95 2.0 98.1 Physical Exam General: Alert, Oriented X3, mild distress, moderate distress Lungs: Clear Abdomen: Normal bowel sounds, Soft Extremities: No clubbing, No edema, Normal pulses Skin: No significant lesion Labs LABS Laboratory Tests Test 05/18/17 18:15 05/18/17 18:25 05/19/17 06:00 Urine Collection Type Void Urine Color Yellow Urine Clarity Clear Urine pH 7.0 Urine Specific [place] <=1.005 Urine Protein Negative mg/dL (NEG-TRACE) Urine Glucose (UA) Negative mg/dL (NEG) Urine Ketones (Stick) Negative mg/dL (NEG) Urine Blood Negative (NEG) Urine Nitrite Negative (NEG) Urine Bilirubin Negative (NEG) Urine Urobilinogen Dipstick 0.2 mg/dL (0.2 mg/dL) Urine Leukocyte Esterase Negative (NEG) Urine RBC 0 /HPF (0-2) Urine WBC 0 /HPF (0-4) Urine Squamous Epithelial Cells None /LPF Urine Bacteria 0 /HPF (0-FEW) Urine Opiates Screen Neg (NEG) Urine Methadone Screen Neg (NEG) Urine Barbiturates Neg (NEG) Urine Phencyclidine Screen Neg (NEG) Urine Amphetamine/Methamphetamine Neg (NEG) Urine Benzodiazepines Screen Neg (NEG) Urine Cocaine Screen Neg (NEG) Urine Cannabinoids Screen Neg (NEG) Urine Ethyl Alcohol Pos (NEG) White Blood Count 9.0 x10^3/uL (4.0-11.0) 5.1 x10^3/uL (4.0-11.0) Red Blood Count 4.52 x10^6/uL (4.30-5.70) 3.88 x10^6/uL (4.30-5.70) Hemoglobin 14.4 g/dL (13.0-17.5) 12.4 g/dL (13.0-17.5) Hematocrit 43.1 % (39.0-53.0) 37.7 % (39.0-53.0) Mean Corpuscular Volume 95 fL (79-100) 97 fL (79-100) Mean Corpuscular Hemoglobin 32 pg (25-35) 32 pg (25-35) Mean Corpuscular Hemoglobin Concent 34 g/dL (31-37) 33 g/dL (31-37) Red Cell Distribution Width 14.6 % (11.5-14.5) 14.7 % (11.5-14.5) Platelet Count 241 x10^3/uL (140-400) 203 x10^3/uL (140-400) Neutrophils (%) (Auto) 70 % (31-73) 50 % (31-73) Lymphocytes (%) (Auto) 20 % (24-48) 31 % (24-48) Monocytes (%) (Auto) 5 % (0-9) 13 % (0-9) Eosinophils (%) (Auto) 5 % (0-3) 6 % (0-3) Basophils (%) (Auto) 1 % (0-3) 1 % (0-3) Neutrophils # (Auto) 6.3 x10^3uL (1.8-7.7) 2.5 x10^3uL (1.8-7.7) Lymphocytes # (Auto) 1.8 x10^3/uL (1.0-4.8) 1.6 x10^3/uL (1.0-4.8) Monocytes # (Auto) 0.4 x10^3/uL (0.0-1.1) 0.7 x10^3/uL (0.0-1.1) Eosinophils # (Auto) 0.4 x10^3/uL (0.0-0.7) 0.3 x10^3/uL (0.0-0.7) Basophils # (Auto) 0.1 x10^3/uL (0.0-0.2) 0.0 x10^3/uL (0.0-0.2) Sodium Level 128 mmol/L (136-145) 138 mmol/L (136-145) Potassium Level 4.4 mmol/L (3.5-5.1) 4.3 mmol/L (3.5-5.1) Chloride Level 90 mmol/L (98-107) 105 mmol/L (98-107) Carbon Dioxide Level 23 mmol/L (21-32) 23 mmol/L (21-32) Anion Gap 15 (6-14) 10 (6-14) Blood Urea Nitrogen 8 mg/dL (8-26) 9 mg/dL (8-26) Creatinine 0.9 mg/dL (0.7-1.3) 0.8 mg/dL (0.7-1.3) Estimated GFR (Cockcroft-Gault) 86.7 99.3 BUN/Creatinine Ratio 9 (6-20) Glucose Level 98 mg/dL (70-99) 104 mg/dL (70-99) Calcium Level 8.4 mg/dL (8.5-10.1) 8.1 mg/dL (8.5-10.1) Magnesium Level 2.2 mg/dL (1.8-2.4) Total Bilirubin 0.4 mg/dL (0.2-1.0) Aspartate Amino Transf (AST/SGOT) 37 U/L (15-37) Alanine Aminotransferase (ALT/SGPT) 28 U/L (16-63) Alkaline Phosphatase 60 U/L (46-116) Total Protein 7.9 g/dL (6.4-8.2) Albumin 4.0 g/dL (3.4-5.0) Albumin/Globulin Ratio 1.0 (1.0-1.7) Ethyl Alcohol Level 363 mg/dL (0-10) Review of Systems Review of Systems Shaky, nauseated, unsteady, still weak, no vomiting, no chest pain, no shortness of breath, no fevers Assessment and Plan Assessmemt and Plan Problems Medical Problems: (1) Alcohol withdrawal Status: Acute (2) Anxiety Status: Acute Problems: Comment Review of Relevant I have reviewed the following items maria r (where applicable) has been applied. Labs Laboratory Tests Test 05/18/17 18:15 05/18/17 18:25 05/19/17 06:00 Urine Collection Type Void Urine Color Yellow Urine Clarity Clear Urine pH 7.0 Urine Specific [place] <=1.005 Urine Protein Negative mg/dL (NEG-TRACE) Urine Glucose (UA) Negative mg/dL (NEG) Urine Ketones (Stick) Negative mg/dL (NEG) Urine Blood Negative (NEG) Urine Nitrite Negative (NEG) Urine Bilirubin Negative (NEG) Urine Urobilinogen Dipstick 0.2 mg/dL (0.2 mg/dL) Urine Leukocyte Esterase Negative (NEG) Urine RBC 0 /HPF (0-2) Urine WBC 0 /HPF (0-4) Urine Squamous Epithelial Cells None /LPF Urine Bacteria 0 /HPF (0-FEW) Urine Opiates Screen Neg (NEG) Urine Methadone Screen Neg (NEG) Urine Barbiturates Neg (NEG) Urine Phencyclidine Screen Neg (NEG) Urine Amphetamine/Methamphetamine Neg (NEG) Urine Benzodiazepines Screen Neg (NEG) Urine Cocaine Screen Neg (NEG) Urine Cannabinoids Screen Neg (NEG) Urine Ethyl Alcohol Pos (NEG) White Blood Count 9.0 x10^3/uL (4.0-11.0) 5.1 x10^3/uL (4.0-11.0) Red Blood Count 4.52 x10^6/uL (4.30-5.70) 3.88 x10^6/uL (4.30-5.70) Hemoglobin 14.4 g/dL (13.0-17.5) 12.4 g/dL (13.0-17.5) Hematocrit 43.1 % (39.0-53.0) 37.7 % (39.0-53.0) Mean Corpuscular Volume 95 fL (79-100) 97 fL (79-100) Mean Corpuscular Hemoglobin 32 pg (25-35) 32 pg (25-35) Mean Corpuscular Hemoglobin Concent 34 g/dL (31-37) 33 g/dL (31-37) Red Cell Distribution Width 14.6 % (11.5-14.5) 14.7 % (11.5-14.5) Platelet Count 241 x10^3/uL (140-400) 203 x10^3/uL (140-400) Neutrophils (%) (Auto) 70 % (31-73) 50 % (31-73) Lymphocytes (%) (Auto) 20 % (24-48) 31 % (24-48) Monocytes (%) (Auto) 5 % (0-9) 13 % (0-9) Eosinophils (%) (Auto) 5 % (0-3) 6 % (0-3) Basophils (%) (Auto) 1 % (0-3) 1 % (0-3) Neutrophils # (Auto) 6.3 x10^3uL (1.8-7.7) 2.5 x10^3uL (1.8-7.7) Lymphocytes # (Auto) 1.8 x10^3/uL (1.0-4.8) 1.6 x10^3/uL (1.0-4.8) Monocytes # (Auto) 0.4 x10^3/uL (0.0-1.1) 0.7 x10^3/uL (0.0-1.1) Eosinophils # (Auto) 0.4 x10^3/uL (0.0-0.7) 0.3 x10^3/uL (0.0-0.7) Basophils # (Auto) 0.1 x10^3/uL (0.0-0.2) 0.0 x10^3/uL (0.0-0.2) Sodium Level 128 mmol/L (136-145) 138 mmol/L (136-145) Potassium Level 4.4 mmol/L (3.5-5.1) 4.3 mmol/L (3.5-5.1) Chloride Level 90 mmol/L (98-107) 105 mmol/L (98-107) Carbon Dioxide Level 23 mmol/L (21-32) 23 mmol/L (21-32) Anion Gap 15 (6-14) 10 (6-14) Blood Urea Nitrogen 8 mg/dL (8-26) 9 mg/dL (8-26) Creatinine 0.9 mg/dL (0.7-1.3) 0.8 mg/dL (0.7-1.3) Estimated GFR (Cockcroft-Gault) 86.7 99.3 BUN/Creatinine Ratio 9 (6-20) Glucose Level 98 mg/dL (70-99) 104 mg/dL (70-99) Calcium Level 8.4 mg/dL (8.5-10.1) 8.1 mg/dL (8.5-10.1) Magnesium Level 2.2 mg/dL (1.8-2.4) Total Bilirubin 0.4 mg/dL (0.2-1.0) Aspartate Amino Transf (AST/SGOT) 37 U/L (15-37) Alanine Aminotransferase (ALT/SGPT) 28 U/L (16-63) Alkaline Phosphatase 60 U/L (46-116) Total Protein 7.9 g/dL (6.4-8.2) Albumin 4.0 g/dL (3.4-5.0) Albumin/Globulin Ratio 1.0 (1.0-1.7) Ethyl Alcohol Level 363 mg/dL (0-10) Laboratory Tests Test 05/18/17 18:15 05/18/17 18:25 05/19/17 06:00 Urine Collection Type Void Urine Color Yellow Urine Clarity Clear Urine pH 7.0 Urine Specific [place] <=1.005 Urine Protein Negative mg/dL (NEG-TRACE) Urine Glucose (UA) Negative mg/dL (NEG) Urine Ketones (Stick) Negative mg/dL (NEG) Urine Blood Negative (NEG) Urine Nitrite Negative (NEG) Urine Bilirubin Negative (NEG) Urine Urobilinogen Dipstick 0.2 mg/dL (0.2 mg/dL) Urine Leukocyte Esterase Negative (NEG) Urine RBC 0 /HPF (0-2) Urine WBC 0 /HPF (0-4) Urine Squamous Epithelial Cells None /LPF Urine Bacteria 0 /HPF (0-FEW) Urine Opiates Screen Neg (NEG) Urine Methadone Screen Neg (NEG) Urine Barbiturates Neg (NEG) Urine Phencyclidine Screen Neg (NEG) Urine Amphetamine/Methamphetamine Neg (NEG) Urine Benzodiazepines Screen Neg (NEG) Urine Cocaine Screen Neg (NEG) Urine Cannabinoids Screen Neg (NEG) Urine Ethyl Alcohol Pos (NEG) White Blood Count 9.0 x10^3/uL (4.0-11.0) 5.1 x10^3/uL (4.0-11.0) Red Blood Count 4.52 x10^6/uL (4.30-5.70) 3.88 x10^6/uL (4.30-5.70) Hemoglobin 14.4 g/dL (13.0-17.5) 12.4 g/dL (13.0-17.5) Hematocrit 43.1 % (39.0-53.0) 37.7 % (39.0-53.0) Mean Corpuscular Volume 95 fL (79-100) 97 fL (79-100) Mean Corpuscular Hemoglobin 32 pg (25-35) 32 pg (25-35) Mean Corpuscular Hemoglobin Concent 34 g/dL (31-37) 33 g/dL (31-37) Red Cell Distribution Width 14.6 % (11.5-14.5) 14.7 % (11.5-14.5) Platelet Count 241 x10^3/uL (140-400) 203 x10^3/uL (140-400) Neutrophils (%) (Auto) 70 % (31-73) 50 % (31-73) Lymphocytes (%) (Auto) 20 % (24-48) 31 % (24-48) Monocytes (%) (Auto) 5 % (0-9) 13 % (0-9) Eosinophils (%) (Auto) 5 % (0-3) 6 % (0-3) Basophils (%) (Auto) 1 % (0-3) 1 % (0-3) Neutrophils # (Auto) 6.3 x10^3uL (1.8-7.7) 2.5 x10^3uL (1.8-7.7) Lymphocytes # (Auto) 1.8 x10^3/uL (1.0-4.8) 1.6 x10^3/uL (1.0-4.8) Monocytes # (Auto) 0.4 x10^3/uL (0.0-1.1) 0.7 x10^3/uL (0.0-1.1) Eosinophils # (Auto) 0.4 x10^3/uL (0.0-0.7) 0.3 x10^3/uL (0.0-0.7) Basophils # (Auto) 0.1 x10^3/uL (0.0-0.2) 0.0 x10^3/uL (0.0-0.2) Sodium Level 128 mmol/L (136-145) 138 mmol/L (136-145) Potassium Level 4.4 mmol/L (3.5-5.1) 4.3 mmol/L (3.5-5.1) Chloride Level 90 mmol/L (98-107) 105 mmol/L (98-107) Carbon Dioxide Level 23 mmol/L (21-32) 23 mmol/L (21-32) Anion Gap 15 (6-14) 10 (6-14) Blood Urea Nitrogen 8 mg/dL (8-26) 9 mg/dL (8-26) Creatinine 0.9 mg/dL (0.7-1.3) 0.8 mg/dL (0.7-1.3) Estimated GFR (Cockcroft-Gault) 86.7 99.3 BUN/Creatinine Ratio 9 (6-20) Glucose Level 98 mg/dL (70-99) 104 mg/dL (70-99) Calcium Level 8.4 mg/dL (8.5-10.1) 8.1 mg/dL (8.5-10.1) Magnesium Level 2.2 mg/dL (1.8-2.4) Total Bilirubin 0.4 mg/dL (0.2-1.0) Aspartate Amino Transf (AST/SGOT) 37 U/L (15-37) Alanine Aminotransferase (ALT/SGPT) 28 U/L (16-63) Alkaline Phosphatase 60 U/L (46-116) Total Protein 7.9 g/dL (6.4-8.2) Albumin 4.0 g/dL (3.4-5.0) Albumin/Globulin Ratio 1.0 (1.0-1.7) Ethyl Alcohol Level 363 mg/dL (0-10) Medications Current Medications Multivitamins 10 ml/Thiamine HCl 100 mg/Folic Acid 1 mg/Sodium Chloride 1,011.2 ml @ 1,000 mls/ hr Q1H IV Last administered on 05/18/17 18:37; Start at 18:15; Stop 05/18/17 at 18:37; Status DC Diazepam (Valium) 5 mg PRN Q5MIN PRN IV COMM Last administered on 05/18/17 21: 03; Start 05/18/17 at 18:00; Stop 05/19/17 at 01:43; Status DC Diazepam (Valium) 10 mg PRN Q5MIN PRN IV COMM; Start 05/18/17 at 18:00; Stop 05/19/17 at 01:43; Status DC Ondansetron HCl (Zofran) 4 mg PRN Q8HRS PRN IV NAUSEA/VOMITING Last administered on 05/19/17 08:05; Start 05/18/17 at 20:15; Stop 05/19/17 at 20:14 Sodium Chloride 1,000 ml @ 125 mls/hr Q8H IV Last administered on 05/19/17 12 :12; Start 05/18/17 at 20:15; Stop 05/19/17 at 20:14 Acetaminophen (Tylenol) 650 mg PRN Q4HRS PRN PO FEVER Last administered on 05/19 08:33; Start 05/18/17 at 20:15; Stop 05/19/17 at 20:14 Lorazepam (Ativan) 4 mg PRN Q1HR PRN PO For CIWA 8-14; Start 05/18/17 at 21:45 Lorazepam (Ativan) 8 mg PRN Q1HR PRN PO For CIWA 15 or greater; Start 05/18/17 at 21:45 Haloperidol Lactate (Haldol) 5 mg PRN Q4HRS PRN IVP Hallucinatns,Confusn, Delirium; Start 05/18/17 at 21:45 Diphenhydramine HCl (Benadryl) 25 mg PRN Q15MIN PRN IVP EPS symptoms 2'Haldol admin; Start 05/18/17 at 21:45 Clonidine HCl (Catapres) 0.1 mg PRN Q1HR PRN PO SBP > 180 or DBP > 100, MRX3; Start 05/18/17 at 21:45 Lorazepam (Ativan) 4 mg PRN Q1HR PRN IV For CIWA 15 or greater Last administered on 05/19/17 09:49; Start 05/18/17 at 21:45 Quetiapine Fumarate (SEROquel) 50 mg HS PO Last administered on 05/19/17 00:50 ; Start 05/19/17 at 00:45 Chlordiazepoxide (Librium) 25 mg PRN Q6HRS PRN PO ANXIETY / AGITATION; Start 05/19/17 at 10:45 Acetaminophen/ Hydrocodone Bitart (Lortab 5/325) 1 tab PRN Q4HRS PRN PO PAIN; Start 05/19/17 at 10:45 Active Scripts Active Reported Ativan (Lorazepam) 1 Mg Tablet 1 Mg PO Q12HR PRN Escitalopram Oxalate 20 Mg Tablet 20 Mg PO DAILY Pantoprazole Sodium 40 Mg Tablet.dr 40 Mg PO DAILY Seroquel (Quetiapine Fumarate) 25 Mg Tablet 50 Mg PO HS Finasteride 5 Mg Tablet 5 Mg PO DAILY Vitals/I & O Vital Sign - Last 24 Hours 05/18/17 05/18/17 05/18/17 05/18/17 17:35 18:35 18:48 19:18 Temp 98.0 98.0 Pulse 102 98 102 98 Resp 22 22 24 13 B/P (MAP) 146/89 (108) 131/79 (96) 138/86 (103) 129/78 (95) Pulse Ox 95 94 98 95 O2 Delivery Room Air Room Air Room Air Room Air 05/18/17 05/18/17 05/18/17 05/18/17 19:48 20:18 21:06 21:18 Pulse 104 102 102 106 Resp 19 17 20 21 B/P (MAP) 121/70 (87) 123/76 (92) 124/69 (87) 134/82 (99) Pulse Ox 96 97 98 92 O2 Delivery Room Air Room Air Room Air Room Air 05/18/17 05/18/17 05/18/17 05/18/17 21:48 22:00 22:00 22:15 Temp 97.7 97.7 Pulse 104 110 Resp 18 29 B/P (MAP) 135/76 (95) 132/67 (88) 107/60 (76) Pulse Ox 98 99 O2 Delivery Room Air Room Air Room Air 05/18/17 05/18/17 05/18/17 05/18/17 22:30 22:45 23:00 23:30 Pulse 106 106 108 106 Resp 26 22 24 16 B/P (MAP) 118/67 (84) 117/67 (84) 129/83 (98) 114/61 (78) Pulse Ox 99 98 93 93 O2 Delivery Room Air Room Air Room Air Room Air 05/18/17 05/19/17 05/19/17 05/19/17 23:59 00:00 01:00 02:00 Temp 97.9 97.9 Pulse 106 103 107 Resp 14 12 18 B/P (MAP) 96/49 (65) 105/59 (74) 99/66 (77) Pulse Ox 95 97 95 O2 Delivery Room Air Room Air Nasal Cannula Nasal Cannula O2 Flow Rate 2.0 2.0 05/19/17 05/19/17 05/19/17 05/19/17 02:08 03:00 07:00 08:00 Temp 97.9 98.1 97.9 98.1 Pulse 107 98 Resp 18 20 B/P (MAP) 99/66 (77) 138/89 (105) Pulse Ox 95 95 O2 Delivery Room Air Nasal Cannula Nasal Cannula Room Air O2 Flow Rate 2.0 2.0 Intake and Output 05/18/17 05/18/17 05/19/17 15:00 23:00 07:00 Intake Total 1850 ml Output Total 1000 ml 1500 ml Balance -1000 ml 350 ml JOCELINE KRISHNAN MD May 19, 2017 12:18
[2017-05-19] MEDS: chlordiazePOXIDE HCL 25 MG CAPSULE PO PRN ×2 (12:37→18:55)
[2017-05-19] MEDS: LORazepam 1 MG TABLET PO PRN ×4 (16:53→23:01)
[2017-05-19] MEDS ORDERED: POLYVINYL ALCOHOL 1.4% OPHTH SOLUTION 15ML BOTTLE. OU PRN (23:45)
[2017-05-20 03:02] VITALS: BP 128/85
[2017-05-20 07:00] VITALS: BP 125/84
[2017-05-20] MEDS: LORazepam 1 MG TABLET PO PRN ×2 (08:24→11:29)
[2017-05-20 11:19] VITALS: BP 128/86
--- NOTE | 2017-05-20 15:16 | PDOC ---
PROGRESS NOTES Chief Complaint Chief Complaint Alcohol intoxication, with levels greater than 300 on admission History of Present Illness History of Present Illness Pt Seen at bedside, sitting up and ready to go, concerned about tremors on DC and requested prescription for Ativan taper, does not like the Librium. Pt is being DC today, home. Recommended AA to assist ETOH dependence DW RN Vitals Vitals Vital Signs Date Time Temp Pulse Resp B/P (MAP) Pulse Ox O2 Delivery O2 Flow Rate FiO2 05/20/17 11:19 97.6 88 18 128/86 (100) 99 Room Air 97.6 05/19/17 16:00 2.0 Physical Exam General: Alert, Oriented X3, Cooperative, No acute distress Heart: Regular rate, No murmurs Lungs: Clear Abdomen: Normal bowel sounds, Soft Extremities: No clubbing, No edema, Normal pulses Skin: No rashes, No significant lesion Review of Systems Review of Systems General: No Fever, Chills, Night Sweats CV: No Chest Pain, Palpitations Assessment and Plan Assessmemt and Plan Assessment; Alcohol withdrawal Alcohol Intoxication Anxiety Plan: Ordered Ativan Taper Continue Etoh WD procedures Continue Home Meds Continue PT/OT Recheck Labs DC probable today- home Problems: Comment Review of Relevant I have reviewed the following items maria r (where applicable) has been applied. Labs Laboratory Tests Test 05/18/17 18:15 05/18/17 18:25 05/18/17 23:00 05/19/17 06:00 Urine Collection Type Void Urine Color Yellow Urine Clarity Clear Urine pH 7.0 Urine Specific [place] <=1.005 Urine Protein Negative mg/dL (NEG-TRACE) Urine Glucose (UA) Negative mg/dL (NEG) Urine Ketones (Stick) Negative mg/dL (NEG) Urine Blood Negative (NEG) Urine Nitrite Negative (NEG) Urine Bilirubin Negative (NEG) Urine Urobilinogen Dipstick 0.2 mg/dL (0.2 mg/dL) Urine Leukocyte Esterase Negative (NEG) Urine RBC 0 /HPF (0-2) Urine WBC 0 /HPF (0-4) Urine Squamous Epithelial Cells None /LPF Urine Bacteria 0 /HPF (0-FEW) Urine Opiates Screen Neg (NEG) Urine Methadone Screen Neg (NEG) Urine Barbiturates Neg (NEG) Urine Phencyclidine Screen Neg (NEG) Urine Amphetamine/Methamphetamine Neg (NEG) Urine Benzodiazepines Screen Neg (NEG) Urine Cocaine Screen Neg (NEG) Urine Cannabinoids Screen Neg (NEG) Urine Ethyl Alcohol Pos (NEG) White Blood Count 9.0 x10^3/uL (4.0-11.0) 5.1 x10^3/uL (4.0-11.0) Red Blood Count 4.52 x10^6/uL (4.30-5.70) 3.88 x10^6/uL (4.30-5.70) Hemoglobin 14.4 g/dL (13.0-17.5) 12.4 g/dL (13.0-17.5) Hematocrit 43.1 % (39.0-53.0) 37.7 % (39.0-53.0) Mean Corpuscular Volume 95 fL (79-100) 97 fL (79-100) Mean Corpuscular Hemoglobin 32 pg (25-35) 32 pg (25-35) Mean Corpuscular Hemoglobin Concent 34 g/dL (31-37) 33 g/dL (31-37) Red Cell Distribution Width 14.6 % (11.5-14.5) 14.7 % (11.5-14.5) Platelet Count 241 x10^3/uL (140-400) 203 x10^3/uL (140-400) Neutrophils (%) (Auto) 70 % (31-73) 50 % (31-73) Lymphocytes (%) (Auto) 20 % (24-48) 31 % (24-48) Monocytes (%) (Auto) 5 % (0-9) 13 % (0-9) Eosinophils (%) (Auto) 5 % (0-3) 6 % (0-3) Basophils (%) (Auto) 1 % (0-3) 1 % (0-3) Neutrophils # (Auto) 6.3 x10^3uL (1.8-7.7) 2.5 x10^3uL (1.8-7.7) Lymphocytes # (Auto) 1.8 x10^3/uL (1.0-4.8) 1.6 x10^3/uL (1.0-4.8) Monocytes # (Auto) 0.4 x10^3/uL (0.0-1.1) 0.7 x10^3/uL (0.0-1.1) Eosinophils # (Auto) 0.4 x10^3/uL (0.0-0.7) 0.3 x10^3/uL (0.0-0.7) Basophils # (Auto) 0.1 x10^3/uL (0.0-0.2) 0.0 x10^3/uL (0.0-0.2) Sodium Level 128 mmol/L (136-145) 138 mmol/L (136-145) Potassium Level 4.4 mmol/L (3.5-5.1) 4.3 mmol/L (3.5-5.1) Chloride Level 90 mmol/L (98-107) 105 mmol/L (98-107) Carbon Dioxide Level 23 mmol/L (21-32) 23 mmol/L (21-32) Anion Gap 15 (6-14) 10 (6-14) Blood Urea Nitrogen 8 mg/dL (8-26) 9 mg/dL (8-26) Creatinine 0.9 mg/dL (0.7-1.3) 0.8 mg/dL (0.7-1.3) Estimated GFR (Cockcroft-Gault) 86.7 99.3 BUN/Creatinine Ratio 9 (6-20) Glucose Level 98 mg/dL (70-99) 104 mg/dL (70-99) Calcium Level 8.4 mg/dL (8.5-10.1) 8.1 mg/dL (8.5-10.1) Magnesium Level 2.2 mg/dL (1.8-2.4) Total Bilirubin 0.4 mg/dL (0.2-1.0) Aspartate Amino Transf (AST/SGOT) 37 U/L (15-37) Alanine Aminotransferase (ALT/SGPT) 28 U/L (16-63) Alkaline Phosphatase 60 U/L (46-116) Total Protein 7.9 g/dL (6.4-8.2) Albumin 4.0 g/dL (3.4-5.0) Albumin/Globulin Ratio 1.0 (1.0-1.7) Ethyl Alcohol Level 363 mg/dL (0-10) Nasal Screen MRSA (PCR) Negative (Negative) Medications Current Medications Multivitamins 10 ml/Thiamine HCl 100 mg/Folic Acid 1 mg/Sodium Chloride 1,011.2 ml @ 1,000 mls/ hr Q1H IV Last administered on 05/18/17 18:37; Start at 18:15; Stop 05/18/17 at 18:37; Status DC Diazepam (Valium) 5 mg PRN Q5MIN PRN IV COMM Last administered on 05/18/17 21: 03; Start 05/18/17 at 18:00; Stop 05/19/17 at 01:43; Status DC Diazepam (Valium) 10 mg PRN Q5MIN PRN IV COMM; Start 05/18/17 at 18:00; Stop 05/19/17 at 01:43; Status DC Ondansetron HCl (Zofran) 4 mg PRN Q8HRS PRN IV NAUSEA/VOMITING Last administered on 05/19/17 14:55; Start 05/18/17 at 20:15; Stop 05/19/17 at 20:14 ; Status DC Sodium Chloride 1,000 ml @ 125 mls/hr Q8H IV Last administered on 05/19/17 12 :12; Start 05/18/17 at 20:15; Stop 05/19/17 at 20:14; Status DC Acetaminophen (Tylenol) 650 mg PRN Q4HRS PRN PO FEVER Last administered on 05/19 16:54; Start 05/18/17 at 20:15; Stop 05/19/17 at 20:14; Status DC Lorazepam (Ativan) 4 mg PRN Q1HR PRN PO For CIWA 8-14 Last administered on 05/20 11:29; Start 05/18/17 at 21:45; Stop 05/20/17 at 14:33; Status DC Lorazepam (Ativan) 8 mg PRN Q1HR PRN PO For CIWA 15 or greater Last administered on 05/19/17 20:51; Start 05/18/17 at 21:45; Stop 05/20/17 at 14:33 ; Status DC Haloperidol Lactate (Haldol) 5 mg PRN Q4HRS PRN IVP Hallucinatns,Confusn, Delirium; Start 05/18/17 at 21:45; Stop 05/20/17 at 14:33; Status DC Diphenhydramine HCl (Benadryl) 25 mg PRN Q15MIN PRN IVP EPS symptoms 2'Haldol admin; Start 05/18/17 at 21:45; Stop 05/20/17 at 14:33; Status DC Clonidine HCl (Catapres) 0.1 mg PRN Q1HR PRN PO SBP > 180 or DBP > 100, MRX3; Start 05/18/17 at 21:45; Stop 05/20/17 at 14:33; Status DC Lorazepam (Ativan) 4 mg PRN Q1HR PRN IV For CIWA 15 or greater Last administered on 05/19/17 14:53; Start 05/18/17 at 21:45; Stop 05/20/17 at 14:33 ; Status DC Quetiapine Fumarate (SEROquel) 50 mg HS PO Last administered on 05/19/17 23:00 ; Start 05/19/17 at 00:45; Stop 05/20/17 at 14:33; Status DC Chlordiazepoxide (Librium) 25 mg PRN Q6HRS PRN PO ANXIETY / AGITATION Last administered on 05/19/17 18:55; Start 05/19/17 at 10:45; Stop 05/20/17 at 14:33 ; Status DC Acetaminophen/ Hydrocodone Bitart (Lortab 5/325) 1 tab PRN Q4HRS PRN PO PAIN Last administered on 05/20/17 08:24; Start 05/19/17 at 10:45; Stop 05/20/17 at 14:33; Status DC Artificial Tears (Artificial Tears) 1 drop PRN Q15MIN PRN OU DRY EYE; Start at 23:45; Stop 05/20/17 at 14:33; Status DC Active Scripts Active Reported Ativan (Lorazepam) 1 Mg Tablet 1 Mg PO Q12HR PRN Escitalopram Oxalate 20 Mg Tablet 20 Mg PO DAILY Pantoprazole Sodium 40 Mg Tablet.dr 40 Mg PO DAILY Seroquel (Quetiapine Fumarate) 25 Mg Tablet 50 Mg PO HS Finasteride 5 Mg Tablet 5 Mg PO DAILY Vitals/I & O Vital Sign - Last 24 Hours 05/19/17 05/19/17 05/19/17 05/19/17 16:00 19:00 20:00 23:00 Temp 98.1 97.7 97.7 98.1 97.7 97.7 Pulse 104 100 101 Resp 19 20 20 B/P (MAP) 144/91 (108) 140/94 (109) 142/90 (107) Pulse Ox 94 93 95 O2 Delivery Nasal Cannula Room Air Room Air Room Air O2 Flow Rate 2.0 05/20/17 05/20/17 05/20/17 05/20/17 03:02 07:00 08:00 08:24 Temp 97.5 97.5 Pulse 89 85 Resp 20 18 B/P (MAP) 128/85 (99) 125/84 (98) Pulse Ox 96 97 O2 Delivery Room Air Room Air Room Air Room Air 05/20/17 05/20/17 09:39 11:19 Temp 97.6 97.6 Pulse 88 Resp 18 B/P (MAP) 128/86 (100) Pulse Ox 99 O2 Delivery Room Air Room Air Intake and Output 05/19/17 05/19/17 05/20/17 15:00 23:00 07:00 Intake Total 660 ml 120 ml Output Total 200 ml 300 ml Balance 460 ml -180 ml LITO MELCHOR III DO May 20, 2017 15:16
== END 2017-05-20 14:33 | disposition home or self-care (01) | DRG 896 ==
LOC: ER 17:26 → 1 WEST ICU 19:48 → 5 NORTH 05-19 02:04
PROVIDERS: ADMIT Internal Medicine; ATTEND Internal Medicine
DX: F10.229 Alcohol dependence with intoxication, unspecified (principal); G92 Toxic encephalopathy; F10.239 Alcohol dependence with withdrawal, unspecified; E87.2 Acidosis; E87.1 Hypo-osmolality and hyponatremia; F41.9 Anxiety disorder, unspecified; F32.9 Major depressive disorder, single episode, unspecified; Z86.711 Personal history of pulmonary embolism; Y90.8 Blood alcohol level of 240 mg/100 ml or more
CPT/HCPCS: 36415; 71010; 80048; 80053; 80307; 81001; 83735; 85025; 87641; 93005; 96374; 96375; 96376; G0480; J2060; J2405; J3360; J7030; 99285-25; G0479

== ENCOUNTER 2017-08-23 22:26 | Emergency (ER) | payer OTHER | END 2017-08-23 23:05 | disposition left against medical advice (07) | LOC: ER 22:26 | DX: F10.10 Alcohol abuse, uncomplicated (principal); I10 Essential (primary) hypertension; Z86.711 Personal history of pulmonary embolism; Z88.0 Allergy status to penicillin | CPT/HCPCS: 99281 ==

== ENCOUNTER 2017-08-25 21:48 | Emergency (ER) | payer OTHER, BC ==
[2017-08-25] MEDS ORDERED: MULTIVIT INFUSN,ADULT 4,VIT K 10 ML, THIAMINE 100 MG, FOLIC ACID 1 MG in IV DEXTROSE 5%... IV (22:30)
[2017-08-25 22:58] LABS: ADD MAN DIFF? NO
[2017-08-25 23:01] LABS: BASO # 0.1 x10^3/uL (0.0-0.2); BASO % 1 % (0-3); EOS # 0.4 x10^3/uL (0.0-0.7); EOS % 7 % (0-3); HEMATOCRIT 37.5 % (39.0-53.0); HEMOGLOBIN 12.6 g/dL (13.0-17.5); LYMPH # 1.3 x10^3/uL (1.0-4.8); LYMPH % 22 % (24-48); MEAN CORPUSCULAR HEMOGLOBIN 33 pg (25-35); MEAN CORPUSCULAR HGB CONC 34 g/dL (31-37); MEAN CORPUSCULAR VOLUME 98 fL (79-100); MONO # 0.9 x10^3/uL (0.0-1.1); MONO % 16 % (0-9); NEUT # 3.1 x10^3uL (1.8-7.7); NEUT % 53 % (31-73); PLATELET COUNT 232 x10^3/uL (140-400); RED BLOOD COUNT 3.84 x10^6/uL (4.30-5.70); WHITE BLOOD COUNT 5.8 x10^3/uL (4.0-11.0)
[2017-08-25 23:08] LABS: ANION GAP 14 (6-14); BLOOD UREA NITROGEN 5 mg/dL (8-26); BUN/CREATININE RATIO 6 (6-20); CALCIUM 8.9 mg/dL (8.5-10.1); CARBON DIOXIDE 25 mmol/L (21-32); CHLORIDE 100 mmol/L (98-107); CREATININE 0.8 mg/dL (0.7-1.3); GFR 99.3; GLUCOSE 105 mg/dL (70-99); POTASSIUM 3.4 mmol/L (3.5-5.1); SODIUM 139 mmol/L (136-145)
[2017-08-25 23:13] LABS: ALBUMIN 3.2 g/dL (3.4-5.0); ALBUMIN/GLOBULIN RATIO 0.7 (1.0-1.7); ALK PHOS 175 U/L (46-116); ALT (SGPT) 297 U/L (16-63); AST (SGOT) 321 U/L (15-37); TOTAL BILIRUBIN 0.6 mg/dL (0.2-1.0); TOTAL PROTEIN 7.7 g/dL (6.4-8.2)
== END 2017-08-25 23:33 | disposition home or self-care (01) ==
LOC: ER 21:48
DX: F10.10 Alcohol abuse, uncomplicated (principal); E86.0 Dehydration; R74.8 Abnormal levels of other serum enzymes; I10 Essential (primary) hypertension; Z86.711 Personal history of pulmonary embolism; Z88.0 Allergy status to penicillin
CPT/HCPCS: 36415; 80053; 83735; 85025; 99284